=== PATIENT | male | born 1960 | race Hispanic/Latino ===

== ENCOUNTER 2016-11-25 20:28 | Observation (INO) | payer MEDICAID ==
[2016-11-25 20:28] VITALS: BMI 28.7
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
[2016-11-25 23:49] VITALS: RESP 18; TEMP 97.6; O2SAT 95
[2016-11-26 06:27] VITALS: BP 118/65; PULSE 60
== END 2016-11-26 06:40 | disposition home or self-care (01) ==
LOC: ED 20:28 → EROBSV 20:45
PROVIDERS: ADMIT Emergency Medicine; ATTEND Emergency Medicine
DX: F10.10 Alcohol abuse, uncomplicated (principal); Y90.9 Presence of alcohol in blood, level not specified
CPT/HCPCS: 96372; 99283; G0378; J3486

== ENCOUNTER 2016-11-29 15:29 | Observation (INO) | payer MEDICAID ==
[2016-11-29 15:36] VITALS: BMI 32.5
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
[2016-11-29 16:14] LABS: ADD MANUAL DIFF? NO
[2016-11-29 16:15] LABS: BASO # 0.04 K/mm3 (0.0-2.0); BASO % 0.6 % (0.0-3.0); EOS # 0.3 (0.0-0.7); EOS % 3.7 % (1.5-5.0); GRAN # 2.86 (1.4-6.5); GRAN % 39.5 % (50.0-68.0); HEMATOCRIT 42.4 % (42.0-52.0); LYMPH # 3.4 (1.2-3.4); LYMPH % 46.4 % (22.0-35.0); MEAN CELL VOLUME 99.1 fL (80.0-105.0); MEAN CORPUSCULAR HEMOGLOBIN 34.3 pg (25.0-35.0); MEAN CORPUSCULAR HGB CONC 34.7 g/dl (31.0-37.0); MEAN PLATELET VOLUME 9.4 fl (7.0-11.0); MONO # 0.7 (0.1-0.6); MONO % 9.8 % (1.0-6.0); PLATELET COUNT 230 10^3/uL (120.0-450.0); RED CELL DISTRIBUTION WIDTH 13.7 % (11.5-14.5); WHITE BLOOD COUNT 7.2 10^3/ul (4.5-11.0)
[2016-11-29 16:25] LABS: ALB/GLOB RATIO 1.1 (1.1-1.8); ALKALINE PHOSPHATASE 54 U/L (38-133); ALT/SGPT 160 U/L (7-56); AST/SGOT 167 U/L (15-59); BILIRUBIN,TOTAL 0.7 mg/dL (0.2-1.3); BLOOD UREA NITROGEN 22 mg/dL (7-21); CALCIUM 9.5 mg/dL (8.4-10.5); CARBON DIOXIDE 25 mmol/L (21-33); CHLORIDE 103 mmol/L (98-107); GFR AFRICAN-AMERICAN > 60; GLUCOSE,RANDOM 78 mg/dL (70-110); MAGNESIUM 1.9 mg/dL (1.7-2.2); POTASSIUM 4.5 mmol/L (3.6-5.0); SODIUM 142 mmol/L (132-148); TOTAL PROTEIN 8.2 g/dL (5.8-8.3)
[2016-11-29 16:40] VITALS: TEMP 98.2
[2016-11-29 18:09] VITALS: BP 118/70; PULSE 80; RESP 17; O2SAT 94
== END 2016-11-29 17:40 | disposition home or self-care (01) ==
LOC: ED 15:29 → EROBSV 16:08
PROVIDERS: ADMIT Emergency Medicine; ATTEND Emergency Medicine
DX: F10.129 Alcohol abuse with intoxication, unspecified (principal)
CPT/HCPCS: 80053; 80329; 83735; 85025; 99283; G0378

== ENCOUNTER 2016-12-01 14:02 | Emergency (ER) | payer MEDICAID ==
[2016-12-01 14:02] VITALS: BMI 32.5
[2016-12-01 14:13] VITALS: BP 139/78; PULSE 88; RESP 18; TEMP 98; O2SAT 95
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
== END 2016-12-01 14:41 | disposition home or self-care (01) ==
LOC: ED 14:02
DX: T51.0X1A Toxic effect of ethanol, accidental (unintentional), initial encounter (principal)

== ENCOUNTER 2016-12-11 09:16 | Emergency (ER) | payer MEDICAID ==
[2016-12-11 09:23] VITALS: BMI 29.7
[2016-12-11] MEDS ORDERED: Oxycodone/Acetaminophen 5/325 mg Tab PO STA (09:29)
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
[2016-12-11 09:31] VITALS: BP 143/90; PULSE 81; RESP 16; TEMP 97.7; O2SAT 98
== END 2016-12-11 09:59 | disposition home or self-care (01) ==
LOC: ED 09:16
DX: M54.5 Low back pain (principal); G89.29 Other chronic pain; I10 Essential (primary) hypertension; F17.210 Nicotine dependence, cigarettes, uncomplicated

== ENCOUNTER 2016-12-19 20:56 | Observation (INO) | payer MEDICAID ==
[2016-12-19 21:13] VITALS: BMI 29.5
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
[2016-12-19 23:32] LABS: ALB/GLOB RATIO 1.1 (1.1-1.8); ALKALINE PHOSPHATASE 46 U/L (38-133); ALT/SGPT 185 U/L (7-56); AST/SGOT 134 U/L (15-59); BILIRUBIN,TOTAL 0.5 mg/dL (0.2-1.3); BLOOD UREA NITROGEN 18 mg/dL (7-21); CARBON DIOXIDE 26 mmol/L (21-33); CHLORIDE 102 mmol/L (98-107); GFR AFRICAN-AMERICAN > 60; GLUCOSE,RANDOM 89 mg/dL (70-110); POTASSIUM 4.2 mmol/L (3.6-5.0); SODIUM 138 mmol/L (132-148)
[2016-12-19 23:37] LABS: HEMATOCRIT 43.1 % (42.0-52.0); MEAN CELL VOLUME 98.9 fL (80.0-105.0); MEAN CORPUSCULAR HEMOGLOBIN 33.9 pg (25.0-35.0); MEAN CORPUSCULAR HGB CONC 34.3 g/dl (31.0-37.0); MEAN PLATELET VOLUME 9.4 fl (7.0-11.0); RED CELL DISTRIBUTION WIDTH 13.3 % (11.5-14.5); WHITE BLOOD COUNT 6.5 10^3/ul (4.5-11.0)
[2016-12-19 23:44] LABS: TROPONIN I < 0.01 ng/mL
[2016-12-19] MEDS ORDERED: Folic Acid 1 MG, Thiamine 100 MG, Multivitamin (MVI) 10 ML in Dextrose 5% In Water 1,00... IV SCH (23:45)
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
[2016-12-20 00:36] LABS: INR 1.04 (0.93-1.08); PARTIAL THROMBOPLASTIN TIME 28.3 Seconds (23.7-30.8)
[2016-12-20] MEDS ORDERED: Multivitamin (MVI) 10 ML, Thiamine 100 MG, Folic Acid 1 MG in Dextrose 5% In Water 1,00... IV ONE (00:45)
--- NOTE | 2016-12-20 08:46 | RAD ---
HISTORY: chest pain COMPARISON: 11/06/2016 FINDINGS: LUNGS: No active pulmonary disease. PLEURA: No significant pleural effusion identified, no pneumothorax apparent. CARDIOVASCULAR: Normal. OSSEOUS STRUCTURES: No significant abnormalities. VISUALIZED UPPER ABDOMEN: Normal. OTHER FINDINGS: None. IMPRESSION: No active disease.
[2016-12-20] MEDS ORDERED: Sodium Chloride 0.9% 1,000 ML IV SCH (11:00)
[2016-12-20] MEDS ORDERED: Multivitamin (MVI) 10 ML, Thiamine 100 MG, Folic Acid 1 MG in Sodium Chloride 0.9% 1,00... IV ONE (11:18)
--- NOTE | 2016-12-20 12:15 | CARD ---
APPROVED REPORT EKG Measurement Heart [id number] ID [id number] <Conclusion> Normal sinus rhythm Normal ECG
[2016-12-20] MEDS: Oxycodone/Acetaminophen 5/325 mg Tab PO PRN (17:49)
[2016-12-21 00:48] VITALS: RESP 20
[2016-12-21] MEDS: Oxycodone/Acetaminophen 5/325 mg Tab PO PRN ×2 (01:59→09:57)
[2016-12-21 06:31] VITALS: BP 139/85; PULSE 66; TEMP 97.6; O2SAT 95
[2016-12-21 07:17] LABS: HEMATOCRIT 41.8 % (42.0-52.0); MEAN CELL VOLUME 97.9 fL (80.0-105.0); MEAN CORPUSCULAR HGB CONC 34.7 g/dl (31.0-37.0); MEAN PLATELET VOLUME 10.1 fl (7.0-11.0); RED CELL DISTRIBUTION WIDTH 13.3 % (11.5-14.5); WHITE BLOOD COUNT 5.6 10^3/ul (4.5-11.0)
[2016-12-21 07:27] LABS: ALB/GLOB RATIO 1.1 (1.1-1.8); ALKALINE PHOSPHATASE 52 U/L (38-133); ALT/SGPT 169 U/L (7-56); AST/SGOT 115 U/L (15-59); BILIRUBIN,TOTAL 0.6 mg/dL (0.2-1.3); BLOOD UREA NITROGEN 13 mg/dL (7-21); CARBON DIOXIDE 27 mmol/L (21-33); CHLORIDE 102 mmol/L (98-107); GFR AFRICAN-AMERICAN > 60; GLUCOSE,RANDOM 100 mg/dL (70-110); POTASSIUM 3.9 mmol/L (3.6-5.0); SODIUM 137 mmol/L (132-148); TOTAL PROTEIN 7.2 g/dL (5.8-8.3)
[2016-12-21 09:29] LABS: CHOLESTEROL 166 mg/dL (130-200)
--- NOTE | 2016-12-21 13:03 | CP.PCM.DIS ---
<Devendra Porter - Last Filed: 12/21/16 12:59> Provider - Provider Date of Admission: 12/19/16 23:57 Attending physician: Jocelyn Vasquez MD Primary care physician: Cliff Omer MD Time Spent in preparation of Discharge (in minutes): 45 Hospital Course - Lab Results Lab Results: Most Recent Lab Values WBC 5.6 10^3/ul (4.5-11.0) 12/21/16 06:45 RBC 4.27 10^6/uL (3.5-6.1) 12/21/16 06:45 Hgb 14.5 gm/dL (14.0-18.0) 12/21/16 06:45 Hct 41.8 % (42.0-52.0) L 12/21/16 06:45 MCV 97.9 fL (80.0-105.0) 12/21/16 06:45 MCH 34.0 pg (25.0-35.0) 12/21/16 06:45 MCHC 34.7 g/dl (31.0-37.0) 12/21/16 06:45 RDW 13.3 % (11.5-14.5) 12/21/16 06:45 Plt Count 200 10^3/uL (120.0-450.0) 12/21/16 06:45 MPV 10.1 fl (7.0-11.0) 12/21/16 06:45 PT 11.2 Seconds (9.9-11.8) 12/19/16 23:10 INR 1.04 (0.93-1.08) 12/19/16 23:10 APTT 28.3 Seconds (23.7-30.8) 12/19/16 23:10 Sodium 137 mmol/L (132-148) 12/21/16 06:45 Potassium 3.9 mmol/L (3.6-5.0) 12/21/16 06:45 Chloride 102 mmol/L (98-107) 12/21/16 06:45 Carbon Dioxide 27 mmol/L (21-33) 12/21/16 06:45 Anion Gap 12 (10-20) 12/21/16 06:45 BUN 13 mg/dL (7-21) 12/21/16 06:45 Creatinine 0.5 mg/dL (0.5-1.4) 12/21/16 06:45 Est GFR ( Amer) > 60 12/21/16 06:45 Est GFR (Non-Af Amer) > 60 12/21/16 06:45 Random Glucose 100 mg/dL (70-110) 12/21/16 06:45 Calcium 9.0 mg/dL (8.4-10.5) 12/21/16 06:45 Total Bilirubin 0.6 mg/dL (0.2-1.3) 12/21/16 06:45 AST 115 U/L (15-59) H 12/21/16 06:45 ALT 169 U/L (7-56) H 12/21/16 06:45 Alkaline Phosphatase 52 U/L (38-133) 12/21/16 06:45 Lactate Dehydrogenase 651 U/L (333-699) 12/19/16 23:10 Total Creatine Kinase 35 U/L (35-230) 12/19/16 23:10 Troponin I < 0.01 ng/mL 12/20/16 13:50 Total Protein 7.2 g/dL (5.8-8.3) 12/21/16 06:45 Albumin 3.7 g/dL (3.0-4.8) 12/21/16 06:45 Globulin 3.5 gm/dL 12/21/16 06:45 Albumin/Globulin Ratio 1.1 (1.1-1.8) 12/21/16 06:45 Triglycerides 76 mg/dL (35-160) 12/21/16 09:00 Cholesterol 166 mg/dL (130-200) 12/21/16 09:00 LDL Cholesterol Direct 62 mg/dL (0-129) 12/21/16 09:00 HDL Cholesterol 76 mg/dL (29-60) H 12/21/16 09:00 Urine Opiates Screen Positive (NEGATIVE) H 12/20/16 13:45 Urine Methadone Screen Negative (NEGATIVE) 12/20/16 13:45 Ur Barbiturates Screen Negative (NEGATIVE) 12/20/16 13:45 Ur Phencyclidine Scrn Negative (NEGATIVE) 12/20/16 13:45 Ur Amphetamines Screen Negative (NEGATIVE) 12/20/16 13:45 U Benzodiazepines Scrn Positive (NEGATIVE) H 12/20/16 13:45 U Oth Cocaine Metabols Negative (NEGATIVE) 12/20/16 13:45 U Cannabinoids Screen Negative (NEGATIVE) 12/20/16 13:45 Alcohol, Quantitative 101 mg/dL (0-10) H 12/19/16 23:10 - Hospital Course Hospital Course: Patient is a 55yo male with past medical history of hypertension, COPD, chronic ETOH abuse, polysubstance abuse, depression and anxiety that presents to the ED c/o chest pain. Patient was heavily intoxicated in the ED with slurred speech but was able to report that he had been drinking throughout the day (~1/2 pint of vodka) when he began to feel short of breath associated with sub-sternal chest pain that radiated into his left arm. Patient reported that a friend called EMS for him. Prior records reveal that he has had multiple admissions for alcohol intoxication/withdrawal and has been non-compliant with alcohol cessation, AA meetings and outpatient follow up. On arrival to the ED, his vitals were as follows: temperature 97.8F, heart rate 85bpm, BP 107/71, RR 18, O2 sat 94% on 2LNC. His labs were notable for an AST of 134, ALT 185, Alcohol level of 101 and troponin negative x1. An EKG revealed normal sinus rhythm with no acute ST-T wave changes. He was admitted for further evaluation/ treatment of chest pain and alcohol withdrawal. He denied abdominal pain, nausea , vomiting, fever, chills, cough. U tox was positive for EtOH, Opiate, and Benzo. Pt was given banana bag, Ativan, Nicotine patch . The following day pt felt better. Denied CP and numbess on his L arm improved. Pt was instructed to f /u with PMD and educated on EtOH cessation. AA arrangement was offered. Pt refused. Pt is stable and was cleared to go home. Discharge Exam - Head Exam Head Exam: ATRAUMATIC, NORMAL INSPECTION, NORMOCEPHALIC - Eye Exam Eye Exam: EOMI, Normal appearance, PERRL Pupil Exam: NORMAL ACCOMODATION, PERRL - ENT Exam ENT Exam: Normal External Ear Exam - Neck Exam Neck exam: Full Rom, Normal Inspection - Respiratory Exam Respiratory Exam: NORMAL BREATHING PATTERN, UNREMARKABLE - Cardiovascular Exam Cardiovascular Exam: REGULAR RHYTHM - GI/Abdominal Exam GI & Abdominal Exam: Soft, Unremarkable. absent: Tenderness - Exam Exam: NORMAL INSPECTION - Extremities Exam Extremities exam: full ROM - Neurological Exam Neurological exam: Alert, CN II-XII Intact, Normal Gait, Oriented x3, Reflexes Normal - Psychiatric Exam Psychiatric exam: Normal Affect, Normal Mood - Skin Skin Exam: Dry, Intact, Normal Color, Warm Discharge Plan - Discharge Medications Prescriptions: Folic Acid 1 mg PO DAILY #30 tab Folic Acid/Multivit-Min/Lutein [Therapeutic-M Tablet] 1 each PO DAILY #30 tablet Thiamine [Vitamin B-1] 100 mg PO DAILY #30 tab - Follow Up Plan Condition: STABLE Disposition: HOME/ ROUTINE Instructions: Angina (DC), Chest Pain (DC), Cocaine Abuse (DC), Alcohol Intoxication (DC), Abuse of Alcohol (DC) Additional Instructions: Follow up with Dr Cliff Omer within 3-5 days Referrals: Cliff Omer MD [Primary Care Provider] - <Jocelyn Vasquez - Last Filed: 12/21/16 14:58> Provider - Provider Date of Admission: 12/19/16 23:57 Attending physician: Jocelyn Vasquez MD Primary care physician: Cliff Omer MD Hospital Course - Lab Results Lab Results: Most Recent Lab Values WBC 5.6 10^3/ul (4.5-11.0) 12/21/16 06:45 RBC 4.27 10^6/uL (3.5-6.1) 12/21/16 06:45 Hgb 14.5 gm/dL (14.0-18.0) 12/21/16 06:45 Hct 41.8 % (42.0-52.0) L 12/21/16 06:45 MCV 97.9 fL (80.0-105.0) 12/21/16 06:45 MCH 34.0 pg (25.0-35.0) 12/21/16 06:45 MCHC 34.7 g/dl (31.0-37.0) 12/21/16 06:45 RDW 13.3 % (11.5-14.5) 12/21/16 06:45 Plt Count 200 10^3/uL (120.0-450.0) 12/21/16 06:45 MPV 10.1 fl (7.0-11.0) 12/21/16 06:45 PT 11.2 Seconds (9.9-11.8) 12/19/16 23:10 INR 1.04 (0.93-1.08) 12/19/16 23:10 APTT 28.3 Seconds (23.7-30.8) 12/19/16 23:10 Sodium 137 mmol/L (132-148) 12/21/16 06:45 Potassium 3.9 mmol/L (3.6-5.0) 12/21/16 06:45 Chloride 102 mmol/L (98-107) 12/21/16 06:45 Carbon Dioxide 27 mmol/L (21-33) 12/21/16 06:45 Anion Gap 12 (10-20) 12/21/16 06:45 BUN 13 mg/dL (7-21) 12/21/16 06:45 Creatinine 0.5 mg/dL (0.5-1.4) 12/21/16 06:45 Est GFR ( Amer) > 60 12/21/16 06:45 Est GFR (Non-Af Amer) > 60 12/21/16 06:45 Random Glucose 100 mg/dL (70-110) 12/21/16 06:45 Calcium 9.0 mg/dL (8.4-10.5) 12/21/16 06:45 Total Bilirubin 0.6 mg/dL (0.2-1.3) 12/21/16 06:45 AST 115 U/L (15-59) H 12/21/16 06:45 ALT 169 U/L (7-56) H 12/21/16 06:45 Alkaline Phosphatase 52 U/L (38-133) 12/21/16 06:45 Lactate Dehydrogenase 651 U/L (333-699) 12/19/16 23:10 Total Creatine Kinase 35 U/L (35-230) 12/19/16 23:10 Troponin I < 0.01 ng/mL 12/20/16 13:50 Total Protein 7.2 g/dL (5.8-8.3) 12/21/16 06:45 Albumin 3.7 g/dL (3.0-4.8) 12/21/16 06:45 Globulin 3.5 gm/dL 12/21/16 06:45 Albumin/Globulin Ratio 1.1 (1.1-1.8) 12/21/16 06:45 Triglycerides 76 mg/dL (35-160) 12/21/16 09:00 Cholesterol 166 mg/dL (130-200) 12/21/16 09:00 LDL Cholesterol Direct 62 mg/dL (0-129) 12/21/16 09:00 HDL Cholesterol 76 mg/dL (29-60) H 12/21/16 09:00 Urine Opiates Screen Positive (NEGATIVE) H 12/20/16 13:45 Urine Methadone Screen Negative (NEGATIVE) 12/20/16 13:45 Ur Barbiturates Screen Negative (NEGATIVE) 12/20/16 13:45 Ur Phencyclidine Scrn Negative (NEGATIVE) 12/20/16 13:45 Ur Amphetamines Screen Negative (NEGATIVE) 12/20/16 13:45 U Benzodiazepines Scrn Positive (NEGATIVE) H 12/20/16 13:45 U Oth Cocaine Metabols Negative (NEGATIVE) 12/20/16 13:45 U Cannabinoids Screen Negative (NEGATIVE) 12/20/16 13:45 Alcohol, Quantitative 101 mg/dL (0-10) H 12/19/16 23:10 Attending/Attestation - Attestation I have personally seen and examined this patient.: Yes I have fully participated in the care of the patient.: Yes I have reviewed all pertinent clinical information, including history, physical exam and plan: Yes Notes (Text): I have seen and examined this patient at bedside with the resident. Agree with the above note with the following additions/ exceptions: This is 55 year old male with history of hypertension, COPD, chronic ETOH abuse, polysubstance abuse (snorts heroine), depression and anxiety who presented with chest pain which has resolved. He also was going thru alcohol withdrawal. Patient denies any complaints today including chest pain, abdominal pain, headache, nausea, vomiting, anxiety, diaphoresis or tremors. His gait is steady. PT has cleared him for discharge. Patient will be sent home on thiamine, MVI and folic acid. Patient was offered AA meeting schedule and other information however patient refused. Counselling provided regarding smoking, drugs and alcohol cessation. Patient will follow up with Dr Cliff Omer within 3-[address] Jocelyn Vasquez
== END 2016-12-21 12:20 | disposition home or self-care (01) ==
LOC: ED 20:56 → ERH 23:57 → 2RNO 12-20 01:32
PROVIDERS: ADMIT Internal Medicine; ATTEND Hospitalist
DX: F10.239 Alcohol dependence with withdrawal, unspecified (principal); R07.9 Chest pain, unspecified; I10 Essential (primary) hypertension; J44.9 Chronic obstructive pulmonary disease, unspecified; F19.10 Other psychoactive substance abuse, uncomplicated; Z87.19 Personal history of other diseases of the digestive system; F41.9 Anxiety disorder, unspecified; F32.89 Other specified depressive episodes; F17.200 Nicotine dependence, unspecified, uncomplicated; J40 Bronchitis, not specified as acute or chronic; Z87.442 Personal history of urinary calculi; Z91.19 Patient's noncompliance with other medical treatment and regimen; G40.89 Other seizures; R23.2 Flushing; M19.90 Unspecified osteoarthritis, unspecified site; Z87.81 Personal history of (healed) traumatic fracture; Z87.898 Personal history of other specified conditions; Z88.6 Allergy status to analgesic agent; Z88.8 Allergy status to other drugs, medicaments and biological substances; R40.2412 Glasgow coma scale score 13-15, at arrival to emergency department
CPT/HCPCS: 36415; 71010; 80053; 80061; 80074; 80320; 80324; 80345; 80346; 80349; 80353; 80358; 80361; 82550; 83615; 83992; 84484; 85027; 85610; 85730; 93005; 96365; 96366; 96372; 96375; 96376; 97116; 97161; 99282; C9113; G0378; G8978; G8979; G8980; J1644; J2060; J3411; J7040; J7070

== ENCOUNTER 2017-02-07 23:45 | Observation (INO) | payer MEDICAID ==
[2017-02-07 23:45] VITALS: BMI 29.5
[2017-02-07 23:56] VITALS: TEMP 97.7
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
[2017-02-08] MEDS ORDERED: Albuterol-Ipratrop 3 mg / 0.5 (3 ml) UD IH STA (00:49)
[2017-02-08] MEDS ORDERED: Nitroglycerin 2% Ointment Foilpak UD TOP STA (00:49)
[2017-02-08 01:05] LABS: ADD MANUAL DIFF? NO
[2017-02-08 01:09] LABS: BASO # 0.04 K/mm3 (0.0-2.0); BASO % 0.6 % (0.0-3.0); EOS # 0.2 (0.0-0.7); EOS % 2.7 % (1.5-5.0); GRAN # 2.85 (1.4-6.5); GRAN % 41.1 % (50.0-68.0); LYMPH # 3.4 (1.2-3.4); LYMPH % 48.5 % (22.0-35.0); MEAN CORPUSCULAR HEMOGLOBIN 33.7 pg (25.0-35.0); MEAN CORPUSCULAR HGB CONC 35.1 g/dl (31.0-37.0); MONO # 0.5 (0.1-0.6); MONO % 7.1 % (1.0-6.0); PLATELET COUNT 227 10^3/uL (120.0-450.0); RED CELL DISTRIBUTION WIDTH 12.5 % (11.5-14.5); WHITE BLOOD COUNT 6.9 10^3/ul (4.5-11.0)
[2017-02-08 01:23] LABS: ALB/GLOB RATIO 1.2 (1.1-1.8); ALKALINE PHOSPHATASE 56 U/L (38-133); ALT/SGPT 247 U/L (7-56); AST/SGOT 149 U/L (15-59); BILIRUBIN,TOTAL 0.6 mg/dL (0.2-1.3); BLOOD UREA NITROGEN 13 mg/dL (7-21); CALCIUM 8.8 mg/dL (8.4-10.5); CARBON DIOXIDE 25 mmol/L (21-33); CHLORIDE 105 mmol/L (98-107); GFR AFRICAN-AMERICAN > 60; GLUCOSE,RANDOM 86 mg/dL (70-110); MAGNESIUM 1.6 mg/dL (1.7-2.2); POTASSIUM 4.4 mmol/L (3.6-5.0); SODIUM 140 mmol/L (132-148); TOTAL PROTEIN 7.6 g/dL (5.8-8.3)
[2017-02-08 01:35] LABS: TROPONIN I < 0.01 ng/mL
--- NOTE | 2017-02-08 01:47 | CT ---
EXAM: CT Head Without Intravenous Contrast CLINICAL HISTORY: 56 years old, male; Signs and symptoms; Altered mental status/memory loss; Additional info: AMS TECHNIQUE: Axial computed tomography images of the head/brain without intravenous contrast. This CT exam was performed using one or more of the following dose reduction techniques: automated exposure control, adjustment of the mA and/or kV according to patient size, and/or use of iterative reconstruction technique. COMPARISON: CT - HEAD W/O CONTRAST 11/12/2016 11:33:47 AM FINDINGS: Limitations: Motion artifact - mild. Brain: [id number] atrophy. No definite intracranial hemorrhage. No mass. No definite edema. Ventricles: No hydrocephalus. Bones/joints: No acute fracture. Soft tissues: Unremarkable. Sinuses: Scattered minimal mucosal thickening of ethmoid sinuses. Mastoid air cells: No mastoid effusion. Orbits: Unremarkable as visualized. IMPRESSION: 1. No definite acute intracranial abnormality. 2. Incidental/non-acute findings are described above.
[2017-02-08 05:20] VITALS: BP 115/77; PULSE 75; RESP 16; O2SAT 96
[2017-02-08 06:27] LABS: URINE BILIRUBIN NEGATIVE (NEGATIVE); URINE BLOOD NEGATIVE (NEGATIVE); URINE GLUCOSE (UA) NEGATIVE (NEGATIVE); URINE KETONE NEGATIVE (NEGATIVE); URINE LEUKOCYTE ESTERASE NEGATIVE Leu/uL (NEGATIVE); URINE PROTEIN NEGATIVE mg/dL (<30 mg/dL); URINE UROBILINOGEN 0.2 E.U./dL (<1 E.U./dL)
[2017-02-08 06:30] LABS: URINE APPEARANCE CLEAR (CLEAR); URINE COLOR YELLOW (YELLOW)
--- NOTE | 2017-02-08 08:04 | RAD ---
HISTORY: cp COMPARISON: 12/19/2016 FINDINGS: LUNGS: No active pulmonary disease. PLEURA: No significant pleural effusion identified, no pneumothorax apparent. CARDIOVASCULAR: Normal. OSSEOUS STRUCTURES: No significant abnormalities. VISUALIZED UPPER ABDOMEN: Normal. OTHER FINDINGS: None. IMPRESSION: No active disease.
--- NOTE | 2017-02-08 14:28 | CARD ---
APPROVED REPORT EKG Measurement Heart [id number] <Conclusion> Normal sinus rhythm Normal ECG
== END 2017-02-08 06:23 | disposition home or self-care (01) ==
LOC: ED 23:45 → EROBSV 02-08
PROVIDERS: ADMIT Emergency Medicine; ATTEND Emergency Medicine
DX: F10.129 Alcohol abuse with intoxication, unspecified (principal); R07.9 Chest pain, unspecified; Y90.7 Blood alcohol level of 200-239 mg/100 ml
CPT/HCPCS: 70450; 71010; 80053; 80320; 81003; 82550; 83615; 83735; 84484; 85025; 93005; 99284; G0378

== ENCOUNTER 2017-02-08 08:44 | Observation (INO) | payer MEDICAID ==
[2017-02-08 08:44] VITALS: BMI 29.5
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
[2017-02-08] MEDS ORDERED: Oxycodone/Acetaminophen 10/325 mg Tab PO STA (09:46)
--- NOTE | 2017-02-08 09:50 | RAD ---
HISTORY: chest pain COMPARISON: Earlier same day FINDINGS: LUNGS: No active pulmonary disease. PLEURA: No significant pleural effusion identified, no pneumothorax apparent. CARDIOVASCULAR: Normal. OSSEOUS STRUCTURES: No significant abnormalities. VISUALIZED UPPER ABDOMEN: Normal. OTHER FINDINGS: None. IMPRESSION: No active disease.
[2017-02-08 09:51] LABS: ADD MANUAL DIFF? NO
[2017-02-08 09:55] LABS: BASO # 0.03 K/mm3 (0.0-2.0); BASO % 0.4 % (0.0-3.0); EOS # 0.1 (0.0-0.7); EOS % 1.3 % (1.5-5.0); GRAN # 4.45 (1.4-6.5); GRAN % 64.3 % (50.0-68.0); HEMATOCRIT 41.6 % (42.0-52.0); LYMPH # 1.9 (1.2-3.4); LYMPH % 27.5 % (22.0-35.0); MEAN CELL VOLUME 96.5 fL (80.0-105.0); MEAN CORPUSCULAR HEMOGLOBIN 33.6 pg (25.0-35.0); MEAN CORPUSCULAR HGB CONC 34.9 g/dl (31.0-37.0); MEAN PLATELET VOLUME 9.5 fl (7.0-11.0); MONO # 0.5 (0.1-0.6); MONO % 6.5 % (1.0-6.0); PLATELET COUNT 225 10^3/uL (120.0-450.0); RED CELL DISTRIBUTION WIDTH 12.5 % (11.5-14.5); WHITE BLOOD COUNT 6.9 10^3/ul (4.5-11.0)
[2017-02-08 10:10] LABS: ALB/GLOB RATIO 1.2 (1.1-1.8); ALKALINE PHOSPHATASE 62 U/L (38-133); ALT/SGPT 256 U/L (7-56); AST/SGOT 155 U/L (15-59); BILIRUBIN,TOTAL 0.6 mg/dL (0.2-1.3); BLOOD UREA NITROGEN 13 mg/dL (7-21); CALCIUM 9.1 mg/dL (8.4-10.5); CARBON DIOXIDE 27 mmol/L (21-33); CHLORIDE 103 mmol/L (98-107); GFR AFRICAN-AMERICAN > 60; GLUCOSE,RANDOM 77 mg/dL (70-110); LIPASE 71 U/L (23-300); POTASSIUM 4.6 mmol/L (3.6-5.0); SODIUM 140 mmol/L (132-148); TOTAL PROTEIN 7.6 g/dL (5.8-8.3)
[2017-02-08 10:29] LABS: TROPONIN I < 0.01 ng/mL
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
[2017-02-08] MEDS ORDERED: Pneumococcal 23-Valent Vaccine IM ONE (13:19)
[2017-02-08] MEDS: Folic Acid 1 MG, Thiamine 100 MG, Multivitamin (MVI) 10 ML in Dextrose 5% In Water 1,00... IV SCH (14:20)
[2017-02-08] MEDS ORDERED: Magnesium Sulfate 1 gm in D5W 1 GM/100 ML BAG IVPB ONE (14:24)
[2017-02-08 14:33] LABS: TROPONIN I < 0.01 ng/mL
--- NOTE | 2017-02-08 14:34 | CARD ---
APPROVED REPORT EKG Measurement Heart [id number] <Conclusion> Normal sinus rhythm Normal ECG
[2017-02-08] MEDS: Oxycodone/Acetaminophen 10/325 mg Tab PO PRN ×2 (16:01→21:32)
[2017-02-08 22:20] LABS: TROPONIN I < 0.01 ng/mL
[2017-02-09] MEDS: Folic Acid 1 MG, Thiamine 100 MG, Multivitamin (MVI) 10 ML in Dextrose 5% In Water 1,00... IV SCH (00:08)
[2017-02-09] MEDS: Oxycodone/Acetaminophen 10/325 mg Tab PO PRN ×2 (04:11→09:55)
[2017-02-09 06:57] LABS: ADD MANUAL DIFF? NO
[2017-02-09 07:02] LABS: BASO # 0.04 K/mm3 (0.0-2.0); BASO % 0.8 % (0.0-3.0); EOS # 0.2 (0.0-0.7); EOS % 3.7 % (1.5-5.0); GRAN # 2.23 (1.4-6.5); GRAN % 45.7 % (50.0-68.0); HEMATOCRIT 41.2 % (42.0-52.0); LYMPH # 1.9 (1.2-3.4); LYMPH % 38.7 % (22.0-35.0); MEAN CELL VOLUME 94.7 fL (80.0-105.0); MEAN CORPUSCULAR HEMOGLOBIN 33.3 pg (25.0-35.0); MEAN CORPUSCULAR HGB CONC 35.2 g/dl (31.0-37.0); MEAN PLATELET VOLUME 9.5 fl (7.0-11.0); MONO # 0.5 (0.1-0.6); MONO % 11.1 % (1.0-6.0); PLATELET COUNT 192 10^3/uL (120.0-450.0); RED CELL DISTRIBUTION WIDTH 12.2 % (11.5-14.5); WHITE BLOOD COUNT 4.9 10^3/ul (4.5-11.0)
[2017-02-09 07:15] LABS: ALB/GLOB RATIO 1.3 (1.1-1.8); ALKALINE PHOSPHATASE 55 U/L (38-133); ALT/SGPT 220 U/L (7-56); AST/SGOT 113 U/L (15-59); BILIRUBIN,TOTAL 0.9 mg/dL (0.2-1.3); BLOOD UREA NITROGEN 14 mg/dL (7-21); CALCIUM 9.2 mg/dL (8.4-10.5); CARBON DIOXIDE 29 mmol/L (21-33); CHLORIDE 102 mmol/L (95-110); CHOLESTEROL 172 mg/dL (130-200); GFR AFRICAN-AMERICAN > 60; GLUCOSE,RANDOM 101 mg/dL (70-110); MAGNESIUM 1.7 mg/dL (1.7-2.2); PHOSPHOROUS 3.1 mg/dL (2.5-4.5); POTASSIUM 4.1 mmol/L (3.6-5.0); SODIUM 137 mmol/L (132-148)
[2017-02-09 11:34] LABS: TROPONIN I < 0.01 ng/mL
[2017-02-09] MEDS: Multivitamin With Minerals Tab PO SCH (12:34)
--- NOTE | 2017-02-09 13:52 | CON ---
DATE: 02/09/2017 REASON FOR CONSULTATION: Chest pain. The patient is a 56-year-old male who has ETOH abuse as well as heroin abuse. He presents because of chest discomfort that he is unable to describe in character. The patient has been seeking pain medi cation since his presentation. The patient had an echocardiograph study last year, which was unremar kable with normal systolic function and normal segmental wall motion with grade I abnormal relaxation patten. SPECT scan was performed in 2014 that was essentially normal. Study was normal gated wall motion. SOCIAL HISTORY: The patient is a smoker, drinker and heroin abuser. MEDICATIONS: Ativan 1 mg p.o. q. 6 hours p.r.n., Nicoderm patch, Percocet 1 tablet q. 6 hours p.r.n. , thiamine 100 mg once a day. PHYSICAL EXAMINATION: GENERAL: The patient is a middle-aged male who does not appear to be in any distress. VITAL SIGNS: Blood pressure 109/68, heart rate 65, temperature 97.9, respiration 20. HEENT: Normocephalic. NECK: No JVD. CHEST: Clear. HEART: S1, S2 regular. EXTREMITIES: No edema. LABORATORIES: Urine drug screen is positive for opiates. Alcohol level is 80. SMA-7 today is withi n normal limits. A total of 4 troponins are negative. Hemoglobin and hematocrit 14.5 and 41.2. EKG revealed normal sinus rhythm. Chest x-ray report, no active disease. ASSESSMENT: 1. Atypical chest pain, myocardial infarction is ruled out. 2. Ethyl alcohol abuse. 3. Heroin abuse. RECOMMENDATIONS: The patient can be discharged from the cardiac point of view with a followup in the clinic for an outpatient stress test. Chan Alicea MD cc: [id number] TT: 02/09/2017 13:51:45 Confirmation # [id number] Dictation # [id number]
--- NOTE | 2017-02-09 14:23 | CP.PCM.PN ---
<Krissy Porter - Last Filed: 02/09/17 14:26> Subjective - Date & Time of Evaluation Date of Evaluation: 02/09/17 Time of Evaluation: 11:00 - Subjective Subjective: Pt seen and evaluated at bedside. Denies SOB, abdominal pain, urinary changes. Continues to have chest pain, but pain is less. No stool overnight as per pt. Afebrile overnight. Objective - Vital Signs/Intake and Output Vital Signs (last 24 hours): Temp Pulse Resp BP Pulse Ox 98 F 76 20 129/86 93 L 02/09/17 12:00 02/09/17 12:00 02/09/17 12:00 02/09/17 12:00 02/09/17 05:48 Intake and Output: 02/09/17 02/09/17 06:59 18:59 Intake Total 1320 Output Total 0 Balance 1320 - Medications Medications: Current Medications Famotidine (Pepcid) 40 mg PO HS [facility] Last Admin: 02/08/17 21:32 Dose: 40 mg Folic Acid (Folic Acid) 1 mg PO DAILY [facility] Last Admin: 02/09/17 12:34 Dose: 1 mg Lorazepam (Ativan) 1 mg PO Q6 [facility] PRN Reason: Protocol Last Admin: 02/09/17 11:36 Dose: 1 mg Lorazepam (Ativan) 1 mg PO Q6 PRN; Protocol PRN Reason: Symptoms of alcohol withdrawl Multivitamins/Minerals (Therapeutic-M Tab) 1 tab PO DAILY [facility] Last Admin: 02/09/17 12:34 Dose: 1 tab Nicotine (Nicoderm Cq) 1 patch TD DAILY [facility] Last Admin: 02/09/17 09:55 Dose: Not Given Ondansetron HCl (Zofran Inj) 4 mg IVP Q6H PRN PRN Reason: Nausea/Vomiting Oxycodone HCl (Oxycodone Immediate Release Tab) 10 mg PO TID [facility] Thiamine HCl (Vitamin B1 Tab) 100 mg PO DAILY [facility] Last Admin: 02/09/17 12:34 Dose: 100 mg - Labs Labs: 02/09/17 06:45 02/09/17 06:45 - Constitutional Appears: Non-toxic, No Acute Distress - Head Exam Head Exam: ATRAUMATIC, NORMOCEPHALIC - Eye Exam Eye Exam: EOMI, Normal appearance - Respiratory Exam Respiratory Exam: Clear to Ausculation Bilateral, NORMAL BREATHING PATTERN - Cardiovascular Exam Cardiovascular Exam: +S1, +S2. absent: Bradycardia - GI/Abdominal Exam GI & Abdominal Exam: Soft. absent: Tenderness - Exam External exam: absent: Ecchymosis, Erythema - Extremities Exam Extremities Exam: absent: Pedal Edema, Tenderness - Back Exam Back Exam: absent: CVA tenderness (L), CVA tenderness (R) - Neurological Exam Neurological Exam: Alert, Awake Additional comments: oriented to self and place, not time. - Skin Skin Exam: Normal Color, Warm Assessment and Plan - Assessment and Plan (Free Text) Plan: 56 yo M w/ PMHx of polysubstance abuse including ETOH, GI bleed, depression, anxiety, presents with intermittent chest pain with radiation down left arm. ETOH level 80 upon admission, and 400+ the day prior. Chest pain r/o ACS: Initial troponin negative x4 EKG: NSR 82 Cardiology consulted, help appreciated. Lipid panel Possible ETOH withdrawal: CIWA protocol, seizure precautions ativan 1mg po Q6 prn Regular diet anxiety: ativan 1 mg PO q6 Chronic back pain: home medication of oxycodone/acetaminophen PRN with hold parameter for somnolence PPx: famotidine, SCD <Jada WILLINGHAM,Rosalie - Last Filed: 02/09/17 16:42> Objective - Vital Signs/Intake and Output Vital Signs (last 24 hours): Temp Pulse Resp BP Pulse Ox 98 F 74 20 129/86 93 L 02/09/17 12:00 02/09/17 14:00 02/09/17 12:00 02/09/17 12:00 02/09/17 05:48 - Medications Medications: Current Medications Famotidine (Pepcid) 40 mg PO HS [facility] Last Admin: 02/08/17 21:32 Dose: 40 mg Folic Acid (Folic Acid) 1 mg PO DAILY [facility] Last Admin: 02/09/17 12:34 Dose: 1 mg Lorazepam (Ativan) 1 mg PO Q6 [facility] PRN Reason: Protocol Last Admin: 02/09/17 11:36 Dose: 1 mg Lorazepam (Ativan) 1 mg PO Q6 PRN; Protocol PRN Reason: Symptoms of alcohol withdrawl Multivitamins/Minerals (Therapeutic-M Tab) 1 tab PO DAILY [facility] Last Admin: 02/09/17 12:34 Dose: 1 tab Nicotine (Nicoderm Cq) 1 patch TD DAILY [facility] Last Admin: 02/09/17 09:55 Dose: Not Given Ondansetron HCl (Zofran Inj) 4 mg IVP Q6H PRN PRN Reason: Nausea/Vomiting Oxycodone HCl (Oxycodone Immediate Release Tab) 10 mg PO TID [facility] Thiamine HCl (Vitamin B1 Tab) 100 mg PO DAILY [facility] Last Admin: 02/09/17 12:34 Dose: 100 mg Attending/Attestation - Attestation I have personally seen and examined this patient.: Yes I have fully participated in the care of the patient.: Yes I have reviewed all pertinent clinical information, including history, physical exam and plan: Yes Notes (Text): 02/09/17 16:39 Patient was seen and examined with medical assembly .Agreed with resident assessment and plan. 56 yrs old male with PMH of alcohol abuse was admitted with atypical chest pain , EKG is negative for ischemic changes, serial troponins are normal, patient has been evaluated by cardiology, no further inpatient work up is recommended, however patient is having alcohol withdrawal at this time, we will continue monitoring with [facility] protocol. Patient is currently on 1.1 for agitation. Management plan was discussed in detail with patient Education was provided.
[2017-02-09] MEDS ORDERED: Oxycodone/Acetaminophen 5/325 mg Tab PO PRN (15:10)
[2017-02-09] MEDS ORDERED: Oxycodone/Acetaminophen 5/325 mg Tab PO ONE (15:12)
[2017-02-09] MEDS: oxyCODONE 10 mg Immediate Release Tab PO SCH (17:31)
[2017-02-09 23:54] VITALS: O2SAT 95
--- NOTE | 2017-02-10 01:36 | CARD ---
APPROVED REPORT EKG Measurement Heart [id number] [place] [id number] <Conclusion> Normal sinus rhythm Normal ECG
[2017-02-10] MEDS ORDERED: oxyCODONE 10 mg Immediate Release Tab PO STA (04:48)
[2017-02-10 07:37] LABS: ADD MANUAL DIFF? NO
[2017-02-10 07:48] LABS: BASO # 0.02 K/mm3 (0.0-2.0); BASO % 0.4 % (0.0-3.0); EOS # 0.2 (0.0-0.7); EOS % 4.2 % (1.5-5.0); GRAN # 2.01 (1.4-6.5); GRAN % 44.4 % (50.0-68.0); HEMATOCRIT 39.2 % (42.0-52.0); LYMPH # 1.6 (1.2-3.4); MEAN CELL VOLUME 95.8 fL (80.0-105.0); MEAN CORPUSCULAR HEMOGLOBIN 33.3 pg (25.0-35.0); MEAN CORPUSCULAR HGB CONC 34.7 g/dl (31.0-37.0); MEAN PLATELET VOLUME 9.7 fl (7.0-11.0); MONO # 0.7 (0.1-0.6); PLATELET COUNT 191 10^3/uL (120.0-450.0); RED CELL DISTRIBUTION WIDTH 12.4 % (11.5-14.5); WHITE BLOOD COUNT 4.5 10^3/ul (4.5-11.0)
[2017-02-10 08:00] LABS: ALB/GLOB RATIO 1.2 (1.1-1.8); ALKALINE PHOSPHATASE 54 U/L (38-133); ALT/SGPT 194 U/L (7-56); AST/SGOT 101 U/L (15-59); BILIRUBIN,TOTAL 0.5 mg/dL (0.2-1.3); BLOOD UREA NITROGEN 14 mg/dL (7-21); CALCIUM 8.9 mg/dL (8.4-10.5); CARBON DIOXIDE 27 mmol/L (21-33); CHLORIDE 102 mmol/L (98-107); GFR AFRICAN-AMERICAN > 60; GLUCOSE,RANDOM 112 mg/dL (70-110); MAGNESIUM 1.5 mg/dL (1.7-2.2); PHOSPHOROUS 2.9 mg/dL (2.5-4.5); SODIUM 135 mmol/L (132-148); TOTAL PROTEIN 6.6 g/dL (5.8-8.3)
[2017-02-10] MEDS: Multivitamin With Minerals Tab PO SCH (09:25)
[2017-02-10] MEDS: oxyCODONE 10 mg Immediate Release Tab PO SCH ×2 (09:25→13:17)
[2017-02-10 12:43] VITALS: BP 142/89; PULSE 75; RESP 16; TEMP 98
--- NOTE | 2017-02-10 14:25 | CP.PCM.DIS ---
<Krissy Porter - Last Filed: 02/10/17 14:34> Provider - Provider Date of Admission: 02/09/17 14:59 Attending physician: Rosalie Elias MD Primary care physician: NO PRIMARY CARE PROVIDER Consults: Dr. Arnett Time Spent in preparation of Discharge (in minutes): 35 Hospital Course - Lab Results Lab Results: Most Recent Lab Values WBC 4.5 10^3/ul (4.5-11.0) 02/10/17 05:00 RBC 4.09 10^6/uL (3.5-6.1) 02/10/17 05:00 Hgb 13.6 gm/dL (14.0-18.0) L 02/10/17 05:00 Hct 39.2 % (42.0-52.0) L 02/10/17 05:00 MCV 95.8 fL (80.0-105.0) 02/10/17 05:00 MCH 33.3 pg (25.0-35.0) 02/10/17 05:00 MCHC 34.7 g/dl (31.0-37.0) 02/10/17 05:00 RDW 12.4 % (11.5-14.5) 02/10/17 05:00 Plt Count 191 10^3/uL (120.0-450.0) 02/10/17 05:00 MPV 9.7 fl (7.0-11.0) 02/10/17 05:00 Gran % 44.4 % (50.0-68.0) L 02/10/17 05:00 Lymph % (Auto) 36.0 % (22.0-35.0) H 02/10/17 05:00 Mower % (Auto) 15.0 % (1.0-6.0) H 02/10/17 05:00 Eos % (Auto) 4.2 % (1.5-5.0) 02/10/17 05:00 Baso % (Auto) 0.4 % (0.0-3.0) 02/10/17 05:00 Gran # 2.01 (1.4-6.5) 02/10/17 05:00 Lymph # 1.6 (1.2-3.4) 02/10/17 05:00 Mower # 0.7 (0.1-0.6) H 02/10/17 05:00 Eos # 0.2 (0.0-0.7) 02/10/17 05:00 Baso # 0.02 K/mm3 (0.0-2.0) 02/10/17 05:00 Sodium 135 mmol/L (132-148) 02/10/17 05:00 Potassium 4.0 mmol/L (3.6-5.0) 02/10/17 05:00 Chloride 102 mmol/L (98-107) 02/10/17 05:00 Carbon Dioxide 27 mmol/L (21-33) 02/10/17 05:00 Anion Gap 10 (10-20) 02/10/17 05:00 BUN 14 mg/dL (7-21) 02/10/17 05:00 Creatinine 0.5 mg/dL (0.5-1.4) 02/10/17 05:00 Est GFR ( Amer) > 60 02/10/17 05:00 Est GFR (Non-Af Amer) > 60 02/10/17 05:00 Random Glucose 112 mg/dL (70-110) H 02/10/17 05:00 Calcium 8.9 mg/dL (8.4-10.5) 02/10/17 05:00 Phosphorus 2.9 mg/dL (2.5-4.5) 02/10/17 05:00 Magnesium 1.5 mg/dL (1.7-2.2) L 02/10/17 05:00 Total Bilirubin 0.5 mg/dL (0.2-1.3) 02/10/17 05:00 AST 101 U/L (15-59) H 02/10/17 05:00 ALT 194 U/L (7-56) H 02/10/17 05:00 Alkaline Phosphatase 54 U/L (38-133) 02/10/17 05:00 Lactate Dehydrogenase 452 U/L (333-699) 02/09/17 10:30 Total Creatine Kinase 33 U/L (35-230) L 02/09/17 10:30 Troponin I < 0.01 ng/mL 02/09/17 10:30 Total Protein 6.6 g/dL (5.8-8.3) 02/10/17 05:00 Albumin 3.6 g/dL (3.0-4.8) 02/10/17 05:00 Globulin 3.0 gm/dL 02/10/17 05:00 Albumin/Globulin Ratio 1.2 (1.1-1.8) 02/10/17 05:00 Triglycerides 73 mg/dL (35-160) 02/09/17 06:45 Cholesterol 172 mg/dL (130-200) 02/09/17 06:45 LDL Cholesterol Direct 81 mg/dL (0-129) 02/09/17 06:45 HDL Cholesterol 77 mg/dL (29-60) H 02/09/17 06:45 Lipase 71 U/L (23-300) 02/08/17 09:05 Urine Opiates Screen Positive (NEGATIVE) H 02/08/17 12:06 Urine Methadone Screen Negative (NEGATIVE) 02/08/17 12:06 Ur Barbiturates Screen Negative (NEGATIVE) 02/08/17 12:06 Ur Phencyclidine Scrn Negative (NEGATIVE) 02/08/17 12:06 Ur Amphetamines Screen Negative (NEGATIVE) 02/08/17 12:06 U Benzodiazepines Scrn Negative (NEGATIVE) 02/08/17 12:06 U Oth Cocaine Metabols Negative (NEGATIVE) 02/08/17 12:06 U Cannabinoids Screen Negative (NEGATIVE) 02/08/17 12:06 Alcohol, Quantitative 80 mg/dL (0-10) H 02/08/17 09:05 - Hospital Course Hospital Course: 56 yo M w/ PMHx of polysubstance abuse including ETOH, anxiety, presents with intermittent chest pain with radiation down left arm. Said pain started [place] train and radiated down L arm when walking, w/c/o SOB with walking. ETOH level of 80, and initial troponin negative with NSR EKG. Admitted for chest pain r/o acs and etoh intoxication. On floor: CIWA protocol, Ativan PRN for etoh intoxication. Pt was on 1:1 for one day for agitation and pulling out IV lines. Troponins were negative times four, and chest pain resolved. Home medications given for chronic back pain and anxiety. Pt discharged in stable condition with the following instructions: You are discharged. Please follow-up with your primary care physician within the next week. Please resume your home medications and take the following new ones: Thiamine 100mg by mouth once daily, Folic acid 1mg by mouth once daily, multivitamin by mouth once daily. You are advised to stop alcohol ingestion. Please follow-up with Dr. Alicea's clinic for outpatient stress test. Please return to the emergency department for worsening of symptoms. Discharge Exam - Head Exam Head Exam: ATRAUMATIC, NORMOCEPHALIC - Eye Exam Eye Exam: EOMI, Normal appearance Pupil Exam: NORMAL ACCOMODATION, PERRL - ENT Exam ENT Exam: Mucous Membranes Moist, Normal Exam - Respiratory Exam Respiratory Exam: NORMAL BREATHING PATTERN, UNREMARKABLE - Cardiovascular Exam Cardiovascular Exam: +S1, +S2. absent: Bradycardia - GI/Abdominal Exam GI & Abdominal Exam: Soft. absent: Tenderness - Exam External exam: absent: Ecchymosis, Erythema - Back Exam Back exam: absent: CVA tenderness (L), CVA tenderness (R) - Skin Skin Exam: Intact, Normal Color Discharge Plan - Discharge Medications Prescriptions: Folic Acid 1 mg PO DAILY #14 tab Multimineral/Multivitamin [Therapeutic-M Tab] 1 tab PO DAILY #14 tab Thiamine [Vitamin B1 Tab] 100 mg PO DAILY #14 tab - Follow Up Plan Condition: STABLE Disposition: HOME/ ROUTINE Instructions: How to Stop Smoking (DC), Non-pharmacological Pain Management Therapies for Adults (GEN), Alcohol Intoxication (GEN), Opioid Withdrawal (DC) Additional Instructions: You are discharged. Please follow-up with your primary care physician within the next week. Please resume your home medications and take the following new ones: Thiamine 100mg by mouth once daily, Folic acid 1mg by mouth once daily, multivitamin by mouth once daily. You are advised to stop alcohol ingestion. Please follow-up with Dr. Alicea's clinic for outpatient stress test. Please return to the emergency department for worsening of symptoms. Referrals: Cliff Omer MD [Medical Doctor] - Chan Alicea MD [Staff Provider] - NORI RAMOS [Primary Care Provider] - <Rosalie Elias MD - Last Filed: 02/10/17 17:21> Provider - Provider Date of Admission: 02/09/17 14:59 Attending physician: Rosalie Elias MD Primary care physician: NORI PRIMARY CARE PROVIDER Hospital Course - Lab Results Lab Results: Most Recent Lab Values WBC 4.5 10^3/ul (4.5-11.0) 05/31/17 05:00 RBC 4.09 10^6/uL (3.5-6.1) 02/10/17 05:00 Hgb 13.6 gm/dL (14.0-18.0) L 02/10/17 05:00 Hct 39.2 % (42.0-52.0) L 02/10/17 05:00 MCV 95.8 fL (80.0-105.0) 02/10/17 05:00 MCH 33.3 pg (25.0-35.0) 02/10/17 05:00 MCHC 34.7 g/dl (31.0-37.0) 02/10/17 05:00 RDW 12.4 % (11.5-14.5) 02/10/17 05:00 Plt Count 191 10^3/uL (120.0-450.0) 02/10/17 05:00 MPV 9.7 fl (7.0-11.0) 02/10/17 05:00 Gran % 44.4 % (50.0-68.0) L 02/10/17 05:00 Lymph % (Auto) 36.0 % (22.0-35.0) H 02/10/17 05:00 Mower % (Auto) 15.0 % (1.0-6.0) H 02/10/17 05:00 Eos % (Auto) 4.2 % (1.5-5.0) 02/10/17 05:00 Baso % (Auto) 0.4 % (0.0-3.0) 02/10/17 05:00 Gran # 2.01 (1.4-6.5) 02/10/17 05:00 Lymph # 1.6 (1.2-3.4) 02/10/17 05:00 Mower # 0.7 (0.1-0.6) H 02/10/17 05:00 Eos # 0.2 (0.0-0.7) 02/10/17 05:00 Baso # 0.02 K/mm3 (0.0-2.0) 02/10/17 05:00 Sodium 135 mmol/L (132-148) 02/10/17 05:00 Potassium 4.0 mmol/L (3.6-5.0) 02/10/17 05:00 Chloride 102 mmol/L (98-107) 02/10/17 05:00 Carbon Dioxide 27 mmol/L (21-33) 02/10/17 05:00 Anion Gap 10 (10-20) 02/10/17 05:00 BUN 14 mg/dL (7-21) 02/10/17 05:00 Creatinine 0.5 mg/dL (0.5-1.4) 02/10/17 05:00 Est GFR ( Amer) > 60 02/10/17 05:00 Est GFR (Non-Af Amer) > 60 02/10/17 05:00 Random Glucose 112 mg/dL (70-110) H 02/10/17 05:00 Calcium 8.9 mg/dL (8.4-10.5) 02/10/17 05:00 Phosphorus 2.9 mg/dL (2.5-4.5) 02/10/17 05:00 Magnesium 1.5 mg/dL (1.7-2.2) L 02/10/17 05:00 Total Bilirubin 0.5 mg/dL (0.2-1.3) 02/10/17 05:00 AST 101 U/L (15-59) H 02/10/17 05:00 ALT 194 U/L (7-56) H 02/10/17 05:00 Alkaline Phosphatase 54 U/L (38-133) 02/10/17 05:00 Lactate Dehydrogenase 452 U/L (333-699) 02/09/17 10:30 Total Creatine Kinase 33 U/L (35-230) L 02/09/17 10:30 Troponin I < 0.01 ng/mL 02/09/17 10:30 Total Protein 6.6 g/dL (5.8-8.3) 02/10/17 05:00 Albumin 3.6 g/dL (3.0-4.8) 02/10/17 05:00 Globulin 3.0 gm/dL 02/10/17 05:00 Albumin/Globulin Ratio 1.2 (1.1-1.8) 02/10/17 05:00 Triglycerides 73 mg/dL (35-160) 02/09/17 06:45 Cholesterol 172 mg/dL (130-200) 02/09/17 06:45 LDL Cholesterol Direct 81 mg/dL (0-129) 02/09/17 06:45 HDL Cholesterol 77 mg/dL (29-60) H 02/09/17 06:45 Lipase 71 U/L (23-300) 02/08/17 09:05 Urine Opiates Screen Positive (NEGATIVE) H 02/08/17 12:06 Urine Methadone Screen Negative (NEGATIVE) 02/08/17 12:06 Ur Barbiturates Screen Negative (NEGATIVE) 02/08/17 12:06 Ur Phencyclidine Scrn Negative (NEGATIVE) 02/08/17 12:06 Ur Amphetamines Screen Negative (NEGATIVE) 02/08/17 12:06 U Benzodiazepines Scrn Negative (NEGATIVE) 02/08/17 12:06 U Oth Cocaine Metabols Negative (NEGATIVE) 02/08/17 12:06 U Cannabinoids Screen Negative (NEGATIVE) 02/08/17 12:06 Alcohol, Quantitative 80 mg/dL (0-10) H 02/08/17 09:05 Attending/Attestation - Attestation I have personally seen and examined this patient.: Yes I have fully participated in the care of the patient.: Yes I have reviewed all pertinent clinical information, including history, physical exam and plan: Yes Notes (Text): 02/10/17 17:18 Patient was seen and examined with medical claims examiner .Agreed with resident assessment and plan. 56 yrs old male with PMH of alcohol abuse was admitted with atypical chest pain , EKG is negative for ischemic changes, serial troponins are normal, patient has been evaluated by cardiology, no further inpatient work up is recommended, his alcohol withdrawal are improved, he is ambulatory at the time of discharge.His transamianse are improving. The issue of chronic alcohol abuse was discussed in detail with him. Management plan was discussed in detail with patient Education was provided.
== END 2017-02-10 15:41 | disposition home or self-care (01) ==
LOC: ED 08:44 → ERH 10:43 → 2RSO 12:01 → OBSVTOIN 02-09 14:59 → INTOOBSV 02-09 14:59
PROVIDERS: ADMIT Internal Medicine; ATTEND Internal Medicine
DX: R07.89 Other chest pain (principal); F10.239 Alcohol dependence with withdrawal, unspecified; F11.10 Opioid abuse, uncomplicated; F41.9 Anxiety disorder, unspecified; F32.9 Major depressive disorder, single episode, unspecified; F17.200 Nicotine dependence, unspecified, uncomplicated; Y90.4 Blood alcohol level of 80-99 mg/100 ml; M54.9 Dorsalgia, unspecified; G89.29 Other chronic pain
CPT/HCPCS: 36415; 71010; 80053; 80061; 80320; 80324; 80345; 80346; 80349; 80353; 80358; 80361; 82550; 83615; 83690; 83735; 83992; 84100; 84484; 85025; 93005; 99285; G0378; J2060; J3411; J3475; J7070

== ENCOUNTER 2017-03-07 21:35 | Observation (INO) | payer MEDICAID ==
[2017-03-07 21:41] VITALS: BMI 29.0
[2017-03-07 21:46] VITALS: O2SAT 96
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
[2017-03-08 05:38] VITALS: BP 102/62; PULSE 72; RESP 18; TEMP 97.6
== END 2017-03-08 06:14 | disposition home or self-care (01) ==
LOC: ED 21:35 → EROBSV 21:58
PROVIDERS: ADMIT Emergency Medicine; ATTEND Emergency Medicine
DX: F10.129 Alcohol abuse with intoxication, unspecified (principal); I10 Essential (primary) hypertension
CPT/HCPCS: 82948; 99283; G0378

== ENCOUNTER 2017-10-26 01:45 | Emergency (ER) | payer MEDICAID ==
[2017-10-26 01:52] VITALS: BMI 29.0
[2017-10-26 02:00] VITALS: TEMP 97.6
[2017-10-26] MEDS ORDERED: Albuterol-Ipratrop 3 mg / 0.5 (3 ml) UD IH STA ×2 (02:15→02:55)
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
[2017-10-26 03:29] VITALS: BP 103/61; PULSE 88; RESP 20; O2SAT 94
--- NOTE | 2017-10-26 10:26 | CARD ---
APPROVED REPORT EKG Measurement Heart [id number] <Conclusion> Normal sinus rhythm Normal ECG No change
== END 2017-10-26 04:08 | disposition home or self-care (01) ==
LOC: ED 01:45
DX: J45.909 Unspecified asthma, uncomplicated (principal); I10 Essential (primary) hypertension; F17.210 Nicotine dependence, cigarettes, uncomplicated

== ENCOUNTER 2017-12-14 02:35 | Emergency (ER) | payer MEDICAID ==
[2017-12-14 02:39] VITALS: BMI 32.5
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
[2017-12-14 08:28] VITALS: BP 137/84; PULSE 88; RESP 18; O2SAT 99
== END 2017-12-14 06:35 | disposition home or self-care (01) ==
LOC: ED 02:35
DX: F10.129 Alcohol abuse with intoxication, unspecified (principal); I10 Essential (primary) hypertension; F17.210 Nicotine dependence, cigarettes, uncomplicated

== ENCOUNTER 2017-12-14 23:51 | Emergency (ER) | payer MEDICAID ==
[2017-12-14 23:52] VITALS: BMI 32.5
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
[2017-12-15 00:19] VITALS: TEMP 97.9
[2017-12-15 06:49] VITALS: BP 135/80; PULSE 62; RESP 18; O2SAT 98
== END 2017-12-15 06:49 | disposition home or self-care (01) ==
LOC: ED 23:51
DX: F10.129 Alcohol abuse with intoxication, unspecified (principal); F17.210 Nicotine dependence, cigarettes, uncomplicated; I10 Essential (primary) hypertension

== ENCOUNTER 2018-01-05 00:28 | Emergency (ER) | payer MEDICAID ==
[2018-01-05 01:25] VITALS: BMI 29.4
[2018-01-05 01:30] VITALS: BP 126/87; PULSE 73; RESP 20; TEMP 99; O2SAT 95
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
[2018-01-05 03:16] LABS: BASO # 0.03 K/mm3 (0.0-2.0); BASO % 0.3 % (0.0-3.0); EOS # 0.2 (0.0-0.7); EOS % 2.3 % (1.5-5.0); GRAN # 5.03 (1.4-6.5); GRAN % 50.2 % (50.0-68.0); HEMOGLOBIN 14.6 g/dL (14.0-18.0); LYMPH # 3.5 (1.2-3.4); LYMPH % 35.4 % (22.0-35.0); MEAN CORPUSCULAR HEMOGLOBIN 33.6 pg (25.0-35.0); MEAN CORPUSCULAR HGB CONC 34.6 g/dl (31.0-37.0); MEAN PLATELET VOLUME 9.7 fl (7.0-11.0); MONO # 1.2 (0.1-0.6); MONO % 11.8 % (1.0-6.0); RBC 4.35 10^6/uL (3.5-6.1); RED CELL DISTRIBUTION WIDTH 13.1 % (11.5-14.5)
[2018-01-05 03:26] LABS: ALB/GLOB RATIO 1.4 (1.1-1.8); ALBUMIN 4.4 g/dL (3.0-4.8); ALT/SGPT 131 U/L (7-56); AST/SGOT 73 U/L (17-59); BLOOD UREA NITROGEN 18 mg/dL (7-21); CALCIUM 9.4 mg/dL (8.4-10.5); GFR AFRICAN-AMERICAN > 60; GFR NON-AFRICAN AMERICAN > 60
[2018-01-05 03:37] LABS: TROPONIN I < 0.01 ng/mL
[2018-01-05 03:48] LABS: URINE BILIRUBIN MODERATE (NEGATIVE); URINE BLOOD NEGATIVE (NEGATIVE); URINE GLUCOSE (UA) NEGATIVE (NEGATIVE); URINE LEUKOCYTE ESTERASE TRACE Leu/uL (NEGATIVE); URINE PROTEIN 30 mg/dL (<30 mg/dL)
[2018-01-05 03:54] LABS: URINE APPEARANCE CLOUDY (CLEAR); URINE COLOR DARK YELLOW (YELLOW)
[2018-01-05 04:55] LABS: URINE RBC NEGATIVE /hpf (0-2); URINE WBC NEGATIVE /hpf (0-6)
[2018-01-05 04:56] LABS: URINE BACTERIA FEW (NEG)
--- NOTE | 2018-01-05 09:19 | RAD ---
HISTORY: cp COMPARISON: 02/08/2017 FINDINGS: LUNGS: No active pulmonary disease. PLEURA: No significant pleural effusion identified, no pneumothorax apparent. CARDIOVASCULAR: Normal. OSSEOUS STRUCTURES: No significant abnormalities. VISUALIZED UPPER ABDOMEN: Normal. OTHER FINDINGS: None. IMPRESSION: No active disease.
--- NOTE | 2018-01-05 11:05 | CARD ---
APPROVED REPORT EKG Measurement Heart [id number] <Conclusion> Normal sinus rhythm Normal ECG
== END 2018-01-05 05:40 | disposition home or self-care (01) ==
LOC: ED 00:28
DX: R07.89 Other chest pain (principal); I10 Essential (primary) hypertension; F17.210 Nicotine dependence, cigarettes, uncomplicated; F19.10 Other psychoactive substance abuse, uncomplicated

== ENCOUNTER 2018-01-07 10:34 | Emergency (ER) | payer MEDICAID ==
[2018-01-07 10:34] VITALS: BMI 29.4
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
[2018-01-07 12:00] LABS: BASO # 0.02 K/mm3 (0.0-2.0); BASO % 0.3 % (0.0-3.0); EOS # 0.3 (0.0-0.7); GRAN # 4.59 (1.4-6.5); HEMOGLOBIN 13.7 g/dL (14.0-18.0); LYMPH # 1.9 (1.2-3.4); LYMPH % 24.7 % (22.0-35.0); MEAN CELL VOLUME 98.3 fl (80.0-105.0); MEAN CORPUSCULAR HEMOGLOBIN 33.4 pg (25.0-35.0); MEAN PLATELET VOLUME 9.2 fl (7.0-11.0); MONO # 0.9 (0.1-0.6); RBC 4.1 10^6/uL (3.5-6.1); WHITE BLOOD COUNT 7.8 10^3/ul (4.5-11.0)
[2018-01-07 12:10] LABS: INR 1.06 (0.93-1.08); PROTHROMBIN TIME 12.2 SECONDS (9.4-12.5)
[2018-01-07 12:14] LABS: ALB/GLOB RATIO 1.5 (1.1-1.8); ALBUMIN 4.2 g/dL (3.0-4.8); ALT/SGPT 129 U/L (7-56); AST/SGOT 86 U/L (17-59); BLOOD UREA NITROGEN 19 mg/dL (7-21); CALCIUM 8.8 mg/dL (8.4-10.5); GFR AFRICAN-AMERICAN > 60; GFR NON-AFRICAN AMERICAN > 60
[2018-01-07 12:15] LABS: ACETAMINOPHEN < 10.0 ug/ml (10.0-20.0); SALICYLATE < 1 mg/dL (2.0-20.0)
[2018-01-07 12:25] LABS: TROPONIN I < 0.01 ng/mL
[2018-01-07] MEDS ORDERED: Potassium Chloride 20 mEq ER Tab PO STA (12:30)
--- NOTE | 2018-01-07 12:30 | RAD ---
HISTORY: 57yoM, overdose COMPARISON: 01/05/2018 FINDINGS: LUNGS: No active pulmonary disease. PLEURA: No significant pleural effusion identified, no pneumothorax apparent. CARDIOVASCULAR: Normal. OSSEOUS STRUCTURES: No significant abnormalities. VISUALIZED UPPER ABDOMEN: Normal. OTHER FINDINGS: None. IMPRESSION: No active disease.
[2018-01-07 13:58] VITALS: BP 120/61; PULSE 74; RESP 16; O2SAT 98
[2018-01-07 14:35] VITALS: TEMP 97.6
--- NOTE | 2018-01-07 18:39 | CARD ---
APPROVED REPORT EKG Measurement Heart [id number] <Conclusion> Normal sinus rhythm Normal ECG
== END 2018-01-07 14:31 | disposition left against medical advice (07) ==
LOC: ED 10:34
DX: F11.10 Opioid abuse, uncomplicated (principal); F17.210 Nicotine dependence, cigarettes, uncomplicated; I10 Essential (primary) hypertension

== ENCOUNTER 2018-01-18 14:01 | Emergency (ER) | payer MEDICAID ==
[2018-01-18 14:10] VITALS: TEMP 97; BMI 29.8
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
[2018-01-18 19:46] VITALS: BP 120/68
[2018-01-18 22:29] VITALS: PULSE 72; RESP 16; O2SAT 99
== END 2018-01-18 22:00 | disposition home or self-care (01) ==
LOC: ED 14:01
DX: F10.129 Alcohol abuse with intoxication, unspecified (principal)
CPT/HCPCS: 82948; 96372; 99285; J1630; J2060

== ENCOUNTER 2018-01-29 02:54 | Emergency (ER) | payer MEDICAID ==
[2018-01-29 02:54] VITALS: BMI 29.8
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
[2018-01-29 06:11] VITALS: BP 138/79; PULSE 72; RESP 18; O2SAT 98
[2018-01-29 06:12] VITALS: TEMP 98.1
--- NOTE | 2018-01-29 10:28 | RAD ---
PROCEDURE: Radiographs of the Left Shoulder HISTORY: r/o fx COMPARISON: No prior. FINDINGS: BONES: Normal. No fracture. JOINTS: Normal. Glenohumeral and acromioclavicular joints preserved. No osteoarthritis. SOFT TISSUES: Normal. OTHER FINDINGS: None. IMPRESSION: No acute findings related to/accounting for the clinical presentation.
== END 2018-01-29 05:36 | disposition home or self-care (01) ==
LOC: ED 02:54
DX: M25.512 Pain in left shoulder (principal)

== ENCOUNTER 2018-02-01 04:17 | Emergency (ER) | payer MEDICAID ==
[2018-02-01 04:18] VITALS: BMI 29.8
[2018-02-01] MEDS ORDERED: Multivitamin (MVI) 10 ML, Thiamine 100 MG, Folic Acid 1 MG in Dextrose 5% In Water 1,00... IV ONE (04:43)
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
[2018-02-01 05:48] LABS: BASO # 0.02 K/mm3 (0.0-2.0); BASO % 0.4 % (0.0-3.0); EOS # 0.2 (0.0-0.7); EOS % 3.3 % (1.5-5.0); GRAN # 3.12 (1.4-6.5); GRAN % 57.8 % (50.0-68.0); HEMOGLOBIN 14.3 g/dL (14.0-18.0); LYMPH # 1.4 (1.2-3.4); LYMPH % 26.3 % (22.0-35.0); MEAN CELL VOLUME 97.4 fl (80.0-105.0); MEAN CORPUSCULAR HEMOGLOBIN 33.6 pg (25.0-35.0); MEAN CORPUSCULAR HGB CONC 34.5 g/dl (31.0-37.0); MEAN PLATELET VOLUME 9.2 fl (7.0-11.0); MONO # 0.7 (0.1-0.6); MONO % 12.2 % (1.0-6.0); RBC 4.26 10^6/uL (3.5-6.1); RED CELL DISTRIBUTION WIDTH 13.3 % (11.5-14.5); WHITE BLOOD COUNT 5.4 10^3/ul (4.5-11.0)
[2018-02-01 05:54] LABS: ALB/GLOB RATIO 1.3 (1.1-1.8); ALBUMIN 4.3 g/dL (3.0-4.8); ALT/SGPT 163 U/L (7-56); AST/SGOT 172 U/L (17-59); BLOOD UREA NITROGEN 12 mg/dL (7-21); CALCIUM 8.9 mg/dL (8.4-10.5); GFR AFRICAN-AMERICAN > 60; GFR NON-AFRICAN AMERICAN > 60
[2018-02-01] MEDS ORDERED: Magnesium Sulfate 2 GM in Sodium Chloride 0.9% 100 ML IVPB ONE (05:56)
--- NOTE | 2018-02-01 08:01 | RAD ---
HISTORY: short of breath COMPARISON: 01/07/2018 FINDINGS: LUNGS: No interval consolidation. Generalized minimal pulmonary venous congestion suspect -similar to slightly increased. PLEURA: No significant pleural effusion identified, no pneumothorax apparent. CARDIOVASCULAR: Normal OSSEOUS STRUCTURES: Thoracic spondylosis bilateral shoulder arthrosis prominent 1st coaster cartilaginous junctional calcifications -similar appearing VISUALIZED UPPER ABDOMEN: Normal. OTHER FINDINGS: None. IMPRESSION: No interval consolidation or atelectasis, pleural effusion or pneumothorax. Pulmonary vasculature appears minimally congested - probably chronic. Possibly slightly increased. No rachel effusion.
[2018-02-01 08:07] VITALS: O2SAT 94
[2018-02-01 08:57] VITALS: BP 148/85; PULSE 64; RESP 16; TEMP 98.7
== END 2018-02-01 08:56 | disposition home or self-care (01) ==
LOC: ED 04:17
DX: T78.40XA Allergy, unspecified, initial encounter (principal); T50.995A Adverse effect of other drugs, medicaments and biological substances, initial encounter; Y92.89 Other specified places as the place of occurrence of the external cause
CPT/HCPCS: 71045; 80053; 80320; 83735; 84100; 85025; 96374; 99284; J2405; J3411; J3475; J7070

== ENCOUNTER 2018-02-07 23:42 | Emergency (ER) | payer MEDICAID ==
[2018-02-08 00:12] VITALS: BP 122/74; PULSE 93; RESP 18; TEMP 98.1; BMI 16.2
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
[2018-02-08] MEDS ORDERED: Oxycodone/Acetaminophen 5/325 mg Tab PO STA (01:06)
[2018-02-08 03:14] VITALS: O2SAT 99
== END 2018-02-08 03:13 | disposition home or self-care (01) ==
LOC: ED 23:42
DX: M54.5 Low back pain (principal); F17.210 Nicotine dependence, cigarettes, uncomplicated; I10 Essential (primary) hypertension; J44.9 Chronic obstructive pulmonary disease, unspecified
CPT/HCPCS: 96372; 99282; J1885

== ENCOUNTER 2018-02-14 21:29 | Emergency (ER) | payer MEDICAID ==
[2018-02-14 21:46] VITALS: BMI 29.0
[2018-02-14] MEDS ORDERED: Albuterol-Ipratrop 3 mg / 0.5 (3 ml) UD IH STA (22:07)
[2018-02-14 22:39] VITALS: TEMP 97.8; O2SAT 95
[2018-02-14 23:28] VITALS: BP 132/75; PULSE 75
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
[2018-02-14 23:55] VITALS: RESP 18
== END 2018-02-14 23:41 | disposition home or self-care (01) ==
LOC: ED 21:29
DX: J44.9 Chronic obstructive pulmonary disease, unspecified (principal); F17.210 Nicotine dependence, cigarettes, uncomplicated

== ENCOUNTER 2018-02-17 23:30 | Emergency (ER) | payer MEDICAID ==
[2018-02-17 23:31] VITALS: BMI 29.0
[2018-02-17 23:46] VITALS: TEMP 98.1
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
[2018-02-18 06:48] VITALS: BP 105/62; PULSE 61; RESP 17; O2SAT 95
--- NOTE | 2018-02-18 10:38 | RAD ---
PROCEDURE: Radiographs of the Left Shoulder HISTORY: pain/past injury COMPARISON: No prior. FINDINGS: BONES: Normal. No fracture. JOINTS: Mild degenerative changes in the acromioclavicular joint. The glenohumeral joint is unremarkable SOFT TISSUES: Normal. OTHER FINDINGS: None. IMPRESSION: Mild degenerative changes in the acromioclavicular joint
== END 2018-02-18 06:47 | disposition home or self-care (01) ==
LOC: ED 23:30
DX: M75.52 Bursitis of left shoulder (principal); I10 Essential (primary) hypertension; F17.210 Nicotine dependence, cigarettes, uncomplicated
CPT/HCPCS: 73030; 96372; 99284; J1885

== ENCOUNTER 2018-02-22 16:54 | Emergency (ER) | payer MEDICAID ==
[2018-02-22 16:54] VITALS: BMI 29.0
[2018-02-22 17:02] VITALS: O2SAT 95
[2018-02-22] MEDS ORDERED: Lidocaine 5% Patch TD ONE (17:11)
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
--- NOTE | 2018-02-22 18:32 | RAD ---
HISTORY: left shoulder/chest pain, fell COMPARISON: Portable chest 02/01/2018 TECHNIQUE: Chest PA and lateral FINDINGS: LUNGS: No active pulmonary disease. PLEURA: No significant pleural effusion identified. No pneumothorax apparent. CARDIOVASCULAR: Normal. OSSEOUS STRUCTURES: No significant abnormalities. VISUALIZED UPPER ABDOMEN: Normal. OTHER FINDINGS: None. IMPRESSION: No interval acute cardiopulmonary disease appreciated.
--- NOTE | 2018-02-22 18:33 | RAD ---
PROCEDURE: Radiographs of the Left Shoulder HISTORY: fell, left shoulder pain COMPARISON: No prior. FINDINGS: BONES: No acute fracture or destructive bony lesion identified. JOINTS: Advanced degenerative changes seen at the acromioclavicular joint including superior osteophytes. Glenohumeral joint appears unremarkable. SOFT TISSUES: Normal. OTHER FINDINGS: None. IMPRESSION: No acute fracture or dislocation. Degenerative acromioclavicular joint changes appear advanced.
[2018-02-22 19:28] VITALS: BP 119/71; PULSE 55; RESP 20; TEMP 98
--- NOTE | 2018-02-22 20:29 | CARD ---
APPROVED REPORT EKG Measurement Heart [id number] <Conclusion> Normal sinus rhythm Normal ECG
== END 2018-02-22 19:10 | disposition home or self-care (01) ==
LOC: ED 16:54
DX: F10.129 Alcohol abuse with intoxication, unspecified (principal); M25.512 Pain in left shoulder; F17.210 Nicotine dependence, cigarettes, uncomplicated; I10 Essential (primary) hypertension
CPT/HCPCS: 71046; 73030; 93005; 96372; 99283; J1885

== ENCOUNTER 2018-02-25 00:10 | Emergency (ER) | payer MEDICAID ==
[2018-02-25 00:11] VITALS: BMI 29.0
[2018-02-25 00:54] VITALS: RESP 18; TEMP 98.6
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
[2018-02-25 06:55] VITALS: BP 118/79; PULSE 62; O2SAT 100
--- NOTE | 2018-02-25 21:36 | CARD ---
APPROVED REPORT EKG Measurement Heart [id number] ID [id number] <Conclusion> Sinus bradycardia Otherwise normal ECG
== END 2018-02-25 06:53 | disposition home or self-care (01) ==
LOC: ED 00:10
DX: F10.10 Alcohol abuse, uncomplicated (principal); I10 Essential (primary) hypertension; F17.210 Nicotine dependence, cigarettes, uncomplicated

== ENCOUNTER 2018-03-01 23:29 | Inpatient (IN) | payer MEDICAID ==
[2018-03-01 23:34] VITALS: BMI 29.4
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
[2018-03-02 06:48] LABS: BASO # 0.02 K/mm3 (0.0-2.0); BASO % 0.3 % (0.0-3.0); EOS # 0.2 (0.0-0.7); GRAN # 3.42 (1.4-6.5); GRAN % 53.1 % (50.0-68.0); HEMOGLOBIN 14.2 g/dL (14.0-18.0); LYMPH % 31.3 % (22.0-35.0); MEAN CELL VOLUME 97.6 fl (80.0-105.0); MEAN CORPUSCULAR HEMOGLOBIN 33.5 pg (25.0-35.0); MEAN CORPUSCULAR HGB CONC 34.3 g/dl (31.0-37.0); MEAN PLATELET VOLUME 9.2 fl (7.0-11.0); MONO # 0.8 (0.1-0.6); MONO % 12.3 % (1.0-6.0); RBC 4.24 10^6/uL (3.5-6.1); RED CELL DISTRIBUTION WIDTH 13.4 % (11.5-14.5); WHITE BLOOD COUNT 6.4 10^3/ul (4.5-11.0)
[2018-03-02 06:49] LABS: URINE BILIRUBIN NEGATIVE (NEGATIVE); URINE BLOOD NEGATIVE (NEGATIVE); URINE GLUCOSE (UA) NEGATIVE (NEGATIVE); URINE LEUKOCYTE ESTERASE TRACE Leu/uL (NEGATIVE); URINE PROTEIN 30 mg/dL (<30 mg/dL); URINE UROBILINOGEN 0.2 E.U./dL (<1 E.U./dL)
[2018-03-02 06:52] LABS: URINE APPEARANCE SL CLOUDY (CLEAR); URINE COLOR DARK YELLOW (YELLOW)
[2018-03-02 06:56] LABS: ACETAMINOPHEN < 10.0 ug/ml (10.0-20.0); SALICYLATE < 1 mg/dL (2.0-20.0)
[2018-03-02 06:59] LABS: URINE BACTERIA FEW (NEG); URINE EPITHELIAL CELLS 0 - 2 /hpf (0-5); URINE RBC 0 - 2 /hpf (0-2); URINE WBC 15 - 20 /hpf (0-6)
[2018-03-02 07:01] LABS: ALB/GLOB RATIO 1.3 (1.1-1.8); ALBUMIN 4.3 g/dL (3.0-4.8); ALT/SGPT 161 U/L (7-56); AST/SGOT 151 U/L (17-59); BLOOD UREA NITROGEN 15 mg/dL (7-21); CALCIUM 8.9 mg/dL (8.4-10.5); GFR AFRICAN-AMERICAN > 60; GFR NON-AFRICAN AMERICAN > 60
[2018-03-02 07:15] LABS: BARBITURATES, UR NEGATIVE (NEGATIVE); BENZODIAZEPINES, UR POSITIVE (NEGATIVE); OPIATES, UR POSITIVE (NEGATIVE); PHENCYCLIDINE, UR NEGATIVE (NEGATIVE)
[2018-03-02] MEDS ORDERED: Magnesium Sulfate 2 gm/50 ml 2 GM/50 ML BAG IVPB ONE (07:32)
[2018-03-02] MEDS ORDERED: Multivitamin (MVI) 10 ML, Thiamine 100 MG, Folic Acid 1 MG in Sodium Chloride 0.9% 1,00... IV ONE (07:39)
[2018-03-02] MEDS ORDERED: Albuterol-Ipratrop 3 mg / 0.5 (3 ml) UD IH PRN (07:41)
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
[2018-03-02] MEDS: Sodium Chloride 0.9% 1,000 ML IV SCH (08:00)
--- NOTE | 2018-03-02 09:26 | CARD ---
APPROVED REPORT EKG Measurement Heart [id number] <Conclusion> Sinus bradycardia Otherwise normal ECG
--- NOTE | 2018-03-02 09:52 | RAD ---
HISTORY: pes COMPARISON: 02/22/2018 FINDINGS: LUNGS: No active pulmonary disease. PLEURA: No significant pleural effusion identified, no pneumothorax apparent. CARDIOVASCULAR: Normal. OSSEOUS STRUCTURES: No significant abnormalities. VISUALIZED UPPER ABDOMEN: Normal. OTHER FINDINGS: None. IMPRESSION: No active disease.
[2018-03-02] MEDS: Enoxaparin 40 mg Syringe SC SCH (10:06)
[2018-03-02] MEDS: cefTRIAXone 1 gm 1 GM/100 ML BAG IVPB SCH (10:07)
[2018-03-02] MEDS ORDERED: Pneumococcal 23-Valent Vaccine IM ONE (14:42)
[2018-03-03] MEDS: Sodium Chloride 0.9% 1,000 ML IV SCH ×2 (04:42→08:48)
[2018-03-03] MEDS ORDERED: Pantoprazole 40 mg EC Tab PO SCH (06:00)
[2018-03-03 06:03] VITALS: O2SAT 99
[2018-03-03 06:34] LABS: BASO # 0.01 K/mm3 (0.0-2.0); BASO % 0.2 % (0.0-3.0); EOS # 0.1 (0.0-0.7); EOS % 2.9 % (1.5-5.0); GRAN # 2.63 (1.4-6.5); HEMOGLOBIN 13.9 g/dL (14.0-18.0); LYMPH # 1.2 (1.2-3.4); LYMPH % 26.5 % (22.0-35.0); MEAN CORPUSCULAR HEMOGLOBIN 32.9 pg (25.0-35.0); MEAN CORPUSCULAR HGB CONC 34.3 g/dl (31.0-37.0); MEAN PLATELET VOLUME 9.9 fl (7.0-11.0); MONO # 0.5 (0.1-0.6); MONO % 11.4 % (1.0-6.0); RBC 4.22 10^6/uL (3.5-6.1); RED CELL DISTRIBUTION WIDTH 12.9 % (11.5-14.5); WHITE BLOOD COUNT 4.5 10^3/ul (4.5-11.0)
[2018-03-03 06:56] LABS: INR 1.06 (0.93-1.08); PARTIAL THROMBOPLASTIN TIME 33.7 Seconds (25.1-36.5); PROTHROMBIN TIME 12.2 SECONDS (9.4-12.5)
[2018-03-03 07:09] LABS: ALBUMIN 3.4 g/dL (3.0-4.8); ALT/SGPT 131 U/L (7-56); AST/SGOT 115 U/L (17-59); BLOOD UREA NITROGEN 14 mg/dL (7-21); CALCIUM 8.6 mg/dL (8.4-10.5); GFR AFRICAN-AMERICAN > 60; GFR NON-AFRICAN AMERICAN > 60
[2018-03-03] MEDS: Enoxaparin 40 mg Syringe SC SCH (10:01)
[2018-03-03] MEDS: cefTRIAXone 1 gm 1 GM/100 ML BAG IVPB SCH (10:02)
[2018-03-03 11:44] VITALS: BP 125/72; RESP 18; TEMP 98.2
--- NOTE | 2018-03-03 15:39 | CP.PCM.PN ---
Subjective - Date & Time of Evaluation Date of Evaluation: 03/03/18 Time of Evaluation: 08:00 - Subjective Subjective: Patient seen and evaluated this AM. Overnight patient required ativan, reported to be agitated and tremulousness. Complains of nausea and vomiting. Noted to have one episode of vomiting. Patient denies chest pain, shortness of breath, abdominal pain. Patient continues to report thoughts of harming oneself. Denies plan, homicidal ideation. Objective - Vital Signs/Intake and Output Vital Signs (last 24 hours): Temp Pulse Resp BP Pulse Ox 98.2 F 59 L 18 125/72 99 03/03/18 11:43 03/03/18 11:43 03/03/18 11:43 03/03/18 11:43 03/03/18 06:00 Intake and Output: 03/03/18 03/03/18 06:59 18:59 Intake Total 1440 560 Output Total 1100 3 Balance 340 557 - Medications Medications: Current Medications Albuterol/Ipratropium (Duoneb 3 Mg/0.5 Mg (3 Ml) Ud) 3 ml IH [id number] PRN PRN Reason: Shortness of Breath Enoxaparin Sodium (Lovenox) 40 mg SC DAILY LINDA PRN Reason: Protocol Last Admin: 03/03/18 10:01 Dose: 40 mg Folic Acid (Folic Acid) 1 mg PO DAILY [facility] Sodium Chloride (Sodium Chloride 0.9%) 1,000 mls @ 80 mls/hr IV .[id number] [facility] Last Admin: 03/03/18 08:48 Dose: 80 mls/hr Ceftriaxone Sodium (Rocephin 1 Gram Ivpb) 1 gm in 100 mls @ 100 mls/hr IVPB DAILY LINDA PRN Reason: Protocol Last Admin: 03/03/18 10:02 Dose: 100 mls/hr Lorazepam (Ativan) 2 mg IVP Q2H PRN; Protocol PRN Reason: Anxiety Last Admin: 03/03/18 13:46 Dose: 2 mg Lorazepam (Ativan) 4 mg IVP Q6 PRN; Protocol PRN Reason: Symptoms of alcohol withdrawl Last Admin: 03/03/18 14:38 Dose: 4 mg Multivitamins/Minerals (Therapeutic-M Tab) 1 tab PO 0800 [facility] Ondansetron HCl (Zofran Inj) 4 mg IVP Q6H PRN PRN Reason: Nausea/Vomiting Last Admin: 03/03/18 08:45 Dose: 4 mg Pantoprazole Sodium (Protonix Ec Tab) 40 mg PO 0600 LINDA Last Admin: 03/03/18 05:54 Dose: 40 mg Thiamine HCl (Vitamin B1 Tab) 100 mg PO DAILY [facility] - Labs Labs: 03/03/18 05:30 03/03/18 05:30 PT 12.2 SECONDS (9.4-12.5) 03/03/18 05:00 INR 1.06 (0.93-1.08) 03/03/18 05:00 APTT 33.7 Seconds (25.1-36.5) 03/03/18 05:00 - Constitutional Appears: No Acute Distress - Head Exam Head Exam: ATRAUMATIC, NORMAL INSPECTION, NORMOCEPHALIC - Eye Exam Eye Exam: EOMI, PERRL - Neck Exam Neck Exam: Full ROM - Respiratory Exam Respiratory Exam: Clear to Ausculation Bilateral, NORMAL BREATHING PATTERN. absent: Wheezes - Cardiovascular Exam Cardiovascular Exam: REGULAR RHYTHM, +S1, +S2 - GI/Abdominal Exam GI & Abdominal Exam: Soft, Normal Bowel Sounds. absent: Firm, Tenderness - Extremities Exam Extremities Exam: absent: Pedal Edema, Tenderness - Neurological Exam Neurological Exam: Alert, Awake, Oriented x3 Additional comments: motor and sensory intact - Psychiatric Exam Psychiatric exam: Agitated, Anxious - Skin Skin Exam: Dry, Warm Assessment and Plan - Assessment and Plan (Free Text) Assessment: Patient is a 57 year old male with a past medical history of tobacco abuse, chronic back pain, polysubstance abuse, chronic alcohol abuse, hypertension, and COPD presenting with alcohol intoxication and suicidal ideation. Plan: Alcohol withdrawal -CIWA protocol, last CIWA 4 -Ativan Q6H 4mg prn -Ativan Q2H 2mg prn -Holding libirum due to transaminitis -Lipase 101 -Banana bag -Aspiration/Seizure/Fall precautions -HOB 45 degrees Suicidal Ideation -Psych consulted, awaiting recs -Continue 1:1 sitter Hypomagnesemia -Replete -Continue to monitor electrolytes Urinary Tract infection -Urine C&S -Rocephin COPD -Duonebs PRN Alcohol, Drug, and Tobacco cessation -Discussed with patient Neuroendocrine tumor -Carcinoid tumor found during colonoscopy done in 10/2017 -Patient to f/u outpatient with GI who performed colonoscopy as well as PMD GI/DVT ppx: Protonix/Lovenox
[2018-03-03 15:49] VITALS: PULSE 58
--- NOTE | 2018-03-03 20:20 | CP.PCM.DIS ---
Provider - Provider Date of Admission: 03/02/18 07:30 Attending physician: Joao Ugalde MD Primary care physician: None Consults: Psych: Dr. Ortiz Time Spent in preparation of Discharge (in minutes): 35 Diagnosis - Discharge Diagnosis (1) Alcohol dependence Status: Chronic (2) Alcohol withdrawal Status: Acute (3) Anxiety Status: Acute (4) Back pain Status: Chronic (5) Polysubstance abuse Status: Chronic (6) Substance abuse Status: Chronic (7) Neuroendocrine tumor Status: Chronic Hospital Course - Lab Results Lab Results: Most Recent Lab Values WBC 4.5 10^3/ul (4.5-11.0) D 03/03/18 05:30 RBC 4.22 10^6/uL (3.5-6.1) 03/03/18 05:30 Hgb 13.9 g/dL (14.0-18.0) L 03/03/18 05:30 Hct 40.5 % (42.0-52.0) L 03/03/18 05:30 MCV 96.0 fl (80.0-105.0) 03/03/18 05:30 MCH 32.9 pg (25.0-35.0) 03/03/18 05:30 MCHC 34.3 g/dl (31.0-37.0) 03/03/18 05:30 RDW 12.9 % (11.5-14.5) 03/03/18 05:30 Plt Count 139 10^3/uL (120.0-450.0) 03/03/18 05:30 MPV 9.9 fl (7.0-11.0) 03/03/18 05:30 Gran % 59.0 % (50.0-68.0) 03/03/18 05:30 Lymph % (Auto) 26.5 % (22.0-35.0) 03/03/18 05:30 Hill % (Auto) 11.4 % (1.0-6.0) H 03/03/18 05:30 Eos % (Auto) 2.9 % (1.5-5.0) 03/03/18 05:30 Baso % (Auto) 0.2 % (0.0-3.0) 03/03/18 05:30 Gran # 2.63 (1.4-6.5) 03/03/18 05:30 Lymph # (Auto) 1.2 (1.2-3.4) 03/03/18 05:30 Hill # (Auto) 0.5 (0.1-0.6) 03/03/18 05:30 Eos # (Auto) 0.1 (0.0-0.7) 03/03/18 05:30 Baso # (Auto) 0.01 K/mm3 (0.0-2.0) 03/03/18 05:30 PT 12.2 SECONDS (9.4-12.5) 03/03/18 05:00 INR 1.06 (0.93-1.08) 03/03/18 05:00 APTT 33.7 Seconds (25.1-36.5) 03/03/18 05:00 Sodium 138 mmol/L (132-148) 03/03/18 05:30 Potassium 3.8 mmol/L (3.6-5.0) 03/03/18 05:30 Chloride 102 mmol/L (98-107) 03/03/18 05:30 Carbon Dioxide 27 mmol/L (21-33) 03/03/18 05:30 Anion Gap 13 (10-20) 03/03/18 05:30 BUN 14 mg/dL (7-21) 03/03/18 05:30 Creatinine 0.5 mg/dl (0.8-1.5) L 03/03/18 05:30 Est GFR ( Amer) > 60 03/03/18 05:30 Est GFR (Non-Af Amer) > 60 03/03/18 05:30 Random Glucose 140 mg/dL (70-110) H 03/03/18 05:30 Calcium 8.6 mg/dL (8.4-10.5) 03/03/18 05:30 Phosphorus 2.8 mg/dL (2.5-4.5) 03/03/18 05:30 Magnesium 1.5 mg/dL (1.7-2.2) L 03/03/18 05:30 Total Bilirubin 1.1 mg/dL (0.2-1.3) 03/03/18 05:30 AST 115 U/L (17-59) H D 03/03/18 05:30 ALT 131 U/L (7-56) H 03/03/18 05:30 Alkaline Phosphatase 53 U/L (38-126) 03/03/18 05:30 Total Protein 6.8 g/dL (5.8-8.3) 03/03/18 05:30 Albumin 3.4 g/dL (3.0-4.8) 03/03/18 05:30 Globulin 3.3 gm/dL 03/03/18 05:30 Albumin/Globulin Ratio 1.0 (1.1-1.8) L 03/03/18 05:30 Lipase 101 U/L (23-300) 03/02/18 06:30 Urine Color Dark yellow (YELLOW) 03/02/18 06:30 Urine Appearance Sl cloudy (CLEAR) 03/02/18 06:30 Urine pH 6.0 (4.7-8.0) 03/02/18 06:30 Ur Specific [place] >= 1.030 (1.005-1.035) 03/02/18 06:30 Urine Protein 30 mg/dL (<30 mg/dL) H 03/02/18 06:30 Urine Glucose (UA) Negative mg/dL (NEGATIVE) 03/02/18 06:30 Urine Ketones Trace mg/dL (NEGATIVE) H 03/02/18 06:30 Urine Blood Negative (NEGATIVE) 03/02/18 06:30 Urine Nitrate Negative (NEGATIVE) 03/02/18 06:30 Urine Bilirubin Negative (NEGATIVE) 03/02/18 06:30 Urine Urobilinogen 0.2 E.U./dL (<1 E.U./dL) 03/02/18 06:30 Ur Leukocyte Esterase Trace Carol/uL (NEGATIVE) H 03/02/18 06:30 Urine RBC 0 - 2 /hpf (0-2) 03/02/18 06:30 Urine WBC 15 - 20 /hpf (0-6) 03/02/18 06:30 Ur Epithelial Cells 0 - 2 /hpf (0-5) 03/02/18 06:30 Urine Bacteria Few (NEG) 03/02/18 06:30 Urine Other Mucus 03/02/18 06:30 Salicylates < 1 mg/dL (2.0-20.0) L 03/02/18 06:30 Urine Opiates Screen Positive (NEGATIVE) H 03/02/18 06:30 Urine Methadone Screen Negative (NEGATIVE) 03/02/18 06:30 Acetaminophen < 10.0 ug/ml (10.0-20.0) L 03/02/18 06:30 Ur Barbiturates Screen Negative (NEGATIVE) 03/02/18 06:30 Ur Phencyclidine Scrn Negative (NEGATIVE) 03/02/18 06:30 Ur Amphetamines Screen Negative (NEGATIVE) 03/02/18 06:30 U Benzodiazepines Scrn Positive (NEGATIVE) H 03/02/18 06:30 U Oth Cocaine Metabols Negative (NEGATIVE) 03/02/18 06:30 U Cannabinoids Screen Negative (NEGATIVE) 03/02/18 06:30 Alcohol, Quantitative 81 mg/dL (0-10) H 03/02/18 06:30 - Hospital Course Hospital Course: 57 year old male with a past medical history of tobacco abuse, chronic back pain , polysubstance abuse, chronic alcohol abuse, hypertension, and COPD presenting with alcohol intoxication. Patient reported suicidal ideation without plan. Ana was seen by psychiatry. Patient was treated for alcohol withdrawal with Ativan and IV fluids. Patient was counseled on cessation of tobacco, heroin, and alcohol. Patient became agitated during his hospital stay demanding increases in his medication. Patient was evaluated to have control of his withdrawal symptoms with Ativan regiment. Patient did during his stay report he would be interested in going to the inpatient psychiatric unit. Patient decided to sign out against medical advice. Patient case was discussed with psychiatry, who reported patient was competent to make his decisions and approved to sign out against medical advice. Patient was instructed to return to ED if he began to have worsening symptoms of substance withdrawal, chest pain, shortness of breath, intractable abdominal pain, weakness, focal deficits or trauma. Patient was instructed to follow up with [facility] neighborhood clinic and director teen post for findings of neuroendocrine tumor ofound on colonoscopy. Patient was in understanding and agreeable. - Date & Time of H&P Date of H&P: 03/02/18 Time of H&P: 07:45 Discharge Exam - Head Exam Head Exam: ATRAUMATIC, NORMAL INSPECTION, NORMOCEPHALIC - Additional Findings Additional findings: see physical exam from today's progress note Discharge Plan - Follow Up Plan Condition: FAIR Disposition: AGAINST MEDICAL ADVICE
--- NOTE | 2018-03-03 23:17 | CON ---
STORY OF PRESENT ILLNESS: The patient is a single, homeless 57-year-old white male with long and debilitating history of alcohol dependency for over 40 years, opiate dependency since 2000 as well as cocaine abuse for almost 30 years, history of depression as well as superficial suicidal gestures, no current outpatient psychiatric treatment or psychiatric medications, though has previously followed by the [facility] who was admitted medically for alcohol withdrawal symptoms after he presented to the ER, intoxicated with suicidal thoughts and requesting a place to stay for the night. I reviewed the patient's recent notes as well as the patient's prior admission and met with the patient at bedside. Patient is superficially cooperative, appears tired and his focus is fair, responses are generally constricted and thought process is coherent. The patient continues to report that he is depressed. He feels as though he is withdrawing from alcohol as well as opiates. He has muscle aches, nausea, headaches, and fatigue. The patient also reports that he is depressed and feels helpless. He denies enjoying life. He has no energy and he is poorly sleeping. This is all within the context of using about a pint of vodka daily with 1 to two 6-packs of beer daily as well as about 1 to 2 bags of heroin daily--patient is very aware about the consequences of his substance use The patient does have a history of cocaine use, but he only uses "once in a blue [place]." The patient reports his main stressors are his drug use and his homelessness. Patient denies having any active or passive suicidal thoughts. He denies hallucinations and his affect is constricted and he does not appear to be responding to internal stimuli. Delusions were not elicited. His insight and judgement are fair; however and he has been in control on the unit and cooperative with staff thus far. It is worth noting the patient is oriented to month and year and location at this time. PSYCHIATRIC HISTORY: The patient indicates prior psychiatric hospitalizations this year at [facility]. He was treated for depression and vague suicidal thoughts in context of current drug and alcohol use. Patient was not discharged on any psychiatric medications, but given the diagnosis of opiate dependency severe, alcohol dependency severe and depression NOS. He has also been treated at [facility] in the past for depression and drug use. The patient cannot recall any prior psychiatric medication trial. In this regard, he cannot recall having prior beneficial medication trial. SOCIAL HISTORY: Patient was born and raised in [place]. He is single. He has one adult child. 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 Patient started using heroin about 5 years ago and uses about 1 to 2 bags daily. Patient only has a grammar school education. He is not currently working due to aforementioned fall off a ladder in 2000. The patient reports that he has been drinking since age of 8 and he has history of when he is drunk. He has a history of multiple detoxes at [facility]. He denies any history of rehab. He denies any history of DT, though does indicate that he has withdrawal seizures in the past, but cannot recall the most recent one and says it was long time ago. Regarding his cocaine use, he uses about "once in a blue [place]." He started using cocaine at age 28. He denies any other substance use at this time. He had UDS on 03/02/2018 was positive for opiates and benzos and DEAN was 81. Patient indicates that he has been homeless for over 8 years. RELEVANT PSYCHIATRIC MEDICATIONS: Include Ativan 2 mg IV every 6 p.r.n. and Ativan 1 mg IV every 2 p.r.n. Vital signs were reviewed by this provider. They are relatively stable this morning. Labs were reviewed by this provider. CBC is generally within normal limits except for decrease in hemoglobin and hematocrit. AST and ALT remain elevated at 150 and 131 respectively, random glucose is 140, it is elevated. IMPRESSION: Depression, not otherwise specified, likely substance abuse and mood disorder, opiate use disorder severe, opiate withdrawal, alcohol use disorder severe, alcohol withdrawal, cocaine abuse. RECOMMENDATIONS: I would continue with treating the patient's alcohol withdrawal with Ativan. Medical team should follow up regarding alcohol withdrawal management. I would also strongly recommend that medical team continue multivitamins and thiamine. Psychiatry will continue to follow up the patient and monitor his symptoms. So, this is likely substance abuse related. He might benefit from inpatient hospitalization if he agrees to voluntary transfer. Patient does not require 1:1 any longer. He is not an active danger to himself. Psychiatry will follow up with the patient tomorrow, 03/04/2018. Margarito Ortiz MD [facility] # [id number] ERLIN
[2018-03-04] MEDS ORDERED: Multivitamin With Minerals Tab PO SCH (08:00)
== END 2018-03-03 17:49 | disposition left against medical advice (07) | DRG 743 ==
LOC: ED 23:29 → ERH 03-02 07:30 → 2RNO 03-02 12:24
PROVIDERS: ADMIT Internal Medicine; ATTEND Internal Medicine
DX: F10.239 Alcohol dependence with withdrawal, unspecified (principal); F11.20 Opioid dependence, uncomplicated; J44.9 Chronic obstructive pulmonary disease, unspecified; N39.0 Urinary tract infection, site not specified; R45.851 Suicidal ideations; E83.42 Hypomagnesemia; F41.9 Anxiety disorder, unspecified; D3A.8 Other benign neuroendocrine tumors; M54.9 Dorsalgia, unspecified; G89.29 Other chronic pain; F32.9 Major depressive disorder, single episode, unspecified; F14.10 Cocaine abuse, uncomplicated; I10 Essential (primary) hypertension; F17.210 Nicotine dependence, cigarettes, uncomplicated; Z59.0 Homelessness

== ENCOUNTER 2018-03-08 21:35 | Observation (INO) | payer MEDICAID ==
[2018-03-08 21:46] VITALS: BMI 29.0
[2018-03-08] MEDS ORDERED: Albuterol-Ipratrop 3 mg / 0.5 (3 ml) UD IH STA (22:13)
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
[2018-03-09 00:26] LABS: HEMOGLOBIN 12.7 g/dL (14.0-18.0); MEAN CELL VOLUME 96.3 fl (80.0-105.0); MEAN CORPUSCULAR HEMOGLOBIN 33.5 pg (25.0-35.0); MEAN CORPUSCULAR HGB CONC 34.8 g/dl (31.0-37.0); MEAN PLATELET VOLUME 8.8 fl (7.0-11.0); RBC 3.79 10^6/uL (3.5-6.1); RED CELL DISTRIBUTION WIDTH 13.1 % (11.5-14.5); WHITE BLOOD COUNT 4.9 10^3/ul (4.5-11.0)
[2018-03-09 00:37] LABS: INR 0.99 (0.93-1.08); PARTIAL THROMBOPLASTIN TIME 33.1 Seconds (25.1-36.5); PROTHROMBIN TIME 11.3 SECONDS (9.4-12.5)
[2018-03-09 00:43] LABS: ALB/GLOB RATIO 1.2 (1.1-1.8); ALBUMIN 3.9 g/dL (3.0-4.8); ALT/SGPT 131 U/L (7-56); AST/SGOT 128 U/L (17-59); BLOOD UREA NITROGEN 12 mg/dL (7-21); CALCIUM 8.6 mg/dL (8.4-10.5); GFR AFRICAN-AMERICAN > 60; GFR NON-AFRICAN AMERICAN > 60
[2018-03-09 00:54] LABS: TROPONIN I < 0.01 ng/mL
[2018-03-09] MEDS ORDERED: Potassium Chloride 20 mEq ER Tab PO STA (03:06)
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
[2018-03-09] MEDS ORDERED: Morphine 2 mg/ml ISec IVP PRN (06:10)
[2018-03-09] MEDS: Morphine 2 mg/ml ISec IVP PRN ×3 (06:37→18:40)
[2018-03-09 06:43] LABS: BASO # 0.02 K/mm3 (0.0-2.0); BASO % 0.5 % (0.0-3.0); EOS # 0.2 (0.0-0.7); GRAN # 1.72 (1.4-6.5); GRAN % 45.4 % (50.0-68.0); HEMOGLOBIN 12.9 g/dL (14.0-18.0); LYMPH # 1.1 (1.2-3.4); MEAN CELL VOLUME 96.4 fl (80.0-105.0); MEAN CORPUSCULAR HEMOGLOBIN 33.1 pg (25.0-35.0); MEAN CORPUSCULAR HGB CONC 34.3 g/dl (31.0-37.0); MEAN PLATELET VOLUME 9.2 fl (7.0-11.0); MONO # 0.8 (0.1-0.6); MONO % 21.1 % (1.0-6.0); PLATELET COUNT 138 10^3/uL (120.0-450.0); RED CELL DISTRIBUTION WIDTH 13.2 % (11.5-14.5); WHITE BLOOD COUNT 3.8 10^3/ul (4.5-11.0)
[2018-03-09 06:55] LABS: ALB/GLOB RATIO 1.1 (1.1-1.8); ALBUMIN 3.7 g/dL (3.0-4.8); ALT/SGPT 126 U/L (7-56); AST/SGOT 114 U/L (17-59); BLOOD UREA NITROGEN 11 mg/dL (7-21); CALCIUM 8.6 mg/dL (8.4-10.5); GFR AFRICAN-AMERICAN > 60; GFR NON-AFRICAN AMERICAN > 60; HDL CHOLESTEROL 94 mg/dL (29-60)
[2018-03-09 07:02] LABS: LDL CHOLESTEROL 66 mg/dL (0-129)
[2018-03-09 07:03] LABS: TROPONIN I < 0.01 ng/mL
[2018-03-09] MEDS ORDERED: Magnesium 2 gm/50 ml NS 2 GM/50 ML BAG IVPB ONE ×2 (07:29→08:30)
[2018-03-09] MEDS ORDERED: Magnesium Sulfate 2 GM in 50 ml Water IVPB ONE (07:30)
[2018-03-09] MEDS ORDERED: Multivitamin (MVI) 10 ML, Thiamine 100 MG, Folic Acid 1 MG in Sodium Chloride 0.9% 1,00... IV ONE (07:34)
[2018-03-09 07:56] LABS: BASOPHIL 2 % (0.0-1.0); EOSINOPHIL 6 % (0.0-3.0); LYMPHOCYTE 20 % (22.0-35.0); MONOCYTE 16 % (1.0-6.0); NEUTROPHIL 56 % (50.0-70.0)
[2018-03-09 07:57] LABS: PLATELET ESTIMATE NORMAL (NORMAL)
--- NOTE | 2018-03-09 08:55 | RAD ---
HISTORY: chest pain COMPARISON: Portable chest 03/02/2018. FINDINGS: LUNGS: Borderline medial basilar airspace disease versus crowding of the bronchovascular markings. Remaining lung quiroz are unremarkable otherwise bilaterally. PLEURA: No significant pleural effusion identified, no pneumothorax apparent. CARDIOVASCULAR: Normal. OSSEOUS STRUCTURES: No significant abnormalities. VISUALIZED UPPER ABDOMEN: Normal. OTHER FINDINGS: None. IMPRESSION: Likely crowding of the bronchovascular markings medial right base versus trace airspace disease here. The remainder of the examination appears stable and unremarkable.
--- NOTE | 2018-03-09 13:00 | CARD ---
APPROVED REPORT EKG Measurement Heart [id number] <Conclusion> Marked sinus bradycardia Abnormal ECG
--- NOTE | 2018-03-09 13:05 | CARD ---
APPROVED REPORT EKG Measurement Heart [id number] <Conclusion> Normal sinus rhythm Normal ECG
[2018-03-09 13:08] LABS: BARBITURATES, UR NEGATIVE (NEGATIVE); BENZODIAZEPINES, UR POSITIVE (NEGATIVE); OPIATES, UR POSITIVE (NEGATIVE); PHENCYCLIDINE, UR NEGATIVE (NEGATIVE)
--- NOTE | 2018-03-09 18:07 | CARD ---
APPROVED REPORT EXAM: Two-dimensional and M-mode echocardiogram with Doppler and color Doppler. INDICATION Chest Pain 2D DIMENSIONS Left Atrium (2D)4.1 (1.6-4.0cm)IVSd1.1 (0.7-1.1cm) LVDd5.7 (3.9-5.9cm)PWd1.1 (0.7-1.1cm) LVDs4.2 (2.5-4.0cm)FS (%) 27.1 % LVEF (%)52.0 (>50%) M-Mode DIMENSIONS Aortic Root3.10 (2.2-3.7cm)Aortic Cusp Exc.2.10 (1.5-2.0cm) Aortic Valve AoV Peak Rekhuksg821.0cm/Ramya Peak GR.6mmHg Mitral Valve E/A ratio0.0 TDI E/Lateral E'0.0E/Medial E'0.0 Tricuspid Valve TR Peak [id number] [id number] Peak Gr.17mmHg [id number] LEFT VENTRICLE The left ventricle is normal size. There is normal left ventricular wall thickness. The left ventricular function is normal. The left ventricular ejection fraction is within the normal range. There is normal LV segmental wall motion. Transmitral Doppler flow pattern is Grade I-abnormal relaxation pattern. RIGHT VENTRICLE The right ventricle is normal size. There is normal right ventricular wall thickness. The right ventricular systolic function is normal. ATRIA The left atrium size is normal. The right atrium size is normal. AORTIC VALVE The aortic valve is not well visualized. No aortic regurgitation is present. There is no aortic valvular stenosis. MITRAL VALVE The mitral valve is normal in structure. There is no mitral valve regurgitation noted. TRICUSPID VALVE The tricuspid valve is normal in structure. There is no tricuspid valve regurgitation noted. PULMONIC VALVE The pulmonary valve is normal in structure. There is no pulmonic valvular regurgitation. There is no pulmonic valvular stenosis. GREAT VESSELS The aortic root is normal in size. PERICARDIAL EFFUSION There is no pericardial effusion. <Conclusion> The left ventricle is normal size. There is normal left ventricular wall thickness. The left ventricular function is normal. The left ventricular ejection fraction is within the normal range. There is normal LV segmental wall motion. Transmitral Doppler flow pattern is Grade I-abnormal relaxation pattern.
--- NOTE | 2018-03-09 21:45 | CON ---
DATE: 03/09/2018 CARDIOLOGY CONSULTATION REASON FOR CONSULTATION: Shortness of breath. HISTORY OF PRESENT ILLNESS: The patient is a 57-year-old male, who has a history of alcohol and drug abuse, history of hypertension and chronic obstructive lung disease. He is active smoker. He presented because of shortness of breath. The patient stated that he did have heart attack in the past, but did refuse to undergo cardiac catheterization at [facility]. The patient has a history of cocaine abuse in the past. The patient denies any retrosternal chest pain at this time. SOCIAL HISTORY: The patient is a smoker, a drinker, a former cocaine abuser. Used to work as a construction tech. PAST MEDICAL HISTORY: History of complex left leg fracture twice related to his work as a construction tech, status post open reduction and internal fixation of the left lower leg. MEDICATIONS: Ativan 1 mg intravenously every 6 hours p.r.n., heparin 5000 units subcutaneous twice a day, Lopressor 25 mg twice a day, Protonix 40 mg intravenous once a day, multivitamin infusion including folic acid and thiamine. PHYSICAL EXAMINATION: GENERAL: The patient is a middle-aged male, who does not appear to be in acute distress. VITAL SIGNS: Blood pressure 165/100, heart rate 50, temperature 98.7, respirations 19. HEENT: Normocephalic. CHEST: Bilateral rhonchi. HEART: S1 and S2 regular. ABDOMEN: Soft. EXTREMITIES: Trace leg edema. LABORATORY DATA: EKG revealed sinus bradycardia at the rate of 43. Chest x-ray revealed borderline cardiomegaly with prominent bronchovascular markings. Echocardiographic study in 05/2017 revealed ejection fraction in the range of 40% to 45%, with mild hypokinesis in the basal anteroseptal wall. A stress test in 09/2014 reported essentially normal SPECT myocardial perfusion study, heterogeneous activities and fixed apical and inferior defect most likely due to soft tissue and diaphragmatic attenuation respectively, normal gated wall motion and thickening of the left ventricle. Today's SMA-7 is within normal limits except for creatinine of 0.4. AST and ALT are 114 and 126 respectively with slight improvement compared to yesterday. Three sets of troponins are negative. TSH level is within normal limit. Lipid profile is within normal limit, except for HDL of 94. PT, PTT and INR are within normal limits. Hemoglobin and hematocrit are 12.9 and 37.6, white count 3.8, platelet count 138,000. ASSESSMENT: 1. Exacerbation of congestive heart failure. 2. Consider alcoholic cardiomyopathy. 3. Rule out underlying coronary artery disease. 4. History of cocaine abuse in the past. RECOMMENDATIONS: Continue current subcutaneous heparin 5000 units every 12 hours, hold Lopressor for now because of sinus bradycardia. Start Cozaar 25 mg orally once a day. Obtain urine for drug screen. Chan Alicea MD
[2018-03-10] MEDS: Morphine 2 mg/ml ISec IVP PRN ×2 (01:54→07:52)
[2018-03-10] MEDS ORDERED: Pantoprazole 40 mg EC Tab PO SCH (06:00)
[2018-03-10 06:52] VITALS: BP 150/86; RESP 20; TEMP 98.2; O2SAT 97
[2018-03-10 06:55] LABS: BASO # 0.01 K/mm3 (0.0-2.0); BASO % 0.2 % (0.0-3.0); EOS # 0.1 (0.0-0.7); EOS % 3.1 % (1.5-5.0); GRAN # 2.24 (1.4-6.5); HEMOGLOBIN 13.6 g/dL (14.0-18.0); LYMPH # 1.4 (1.2-3.4); MEAN CELL VOLUME 94.6 fl (80.0-105.0); MEAN CORPUSCULAR HEMOGLOBIN 33.3 pg (25.0-35.0); MEAN CORPUSCULAR HGB CONC 35.1 g/dl (31.0-37.0); MEAN PLATELET VOLUME 9.6 fl (7.0-11.0); MONO # 0.8 (0.1-0.6); MONO % 17.7 % (1.0-6.0); RBC 4.09 10^6/uL (3.5-6.1); RED CELL DISTRIBUTION WIDTH 12.9 % (11.5-14.5); WHITE BLOOD COUNT 4.6 10^3/ul (4.5-11.0)
[2018-03-10 07:21] LABS: ALBUMIN 3.6 g/dL (3.0-4.8); BLOOD UREA NITROGEN 9 mg/dL (7-21); CALCIUM 8.8 mg/dL (8.4-10.5); GFR AFRICAN-AMERICAN > 60; GFR NON-AFRICAN AMERICAN > 60
[2018-03-10 07:22] LABS: ALB/GLOB RATIO 1.2 (1.1-1.8); ALT/SGPT 115 U/L (7-56); AST/SGOT 90 U/L (17-59)
[2018-03-10] MEDS ORDERED: Magnesium 2 gm/50 ml NS 2 GM/50 ML BAG IVPB ONE (08:50)
--- NOTE | 2018-03-10 10:23 | PN ---
DATE: 03/10/2018 FOLLOWUP SUBJECTIVE: The patient denies any chest pain. PHYSICAL EXAMINATION: VITAL SIGNS: Blood pressure 150/86, heart rate 42, temperature 98.2, respirations 20. HEENT: Normocephalic. CHEST: Clear. HEART: S1 and S2 regular. EXTREMITIES: No edema. LABORATORY DATA: Hemoglobin and hematocrit 13.6 and 38.7. White count and platelet count are within normal limits. Today's SMA-7 is within normal limit except for creatinine 0.4, magnesium is still below normal at 1.6. Echocardiography study revealed normal ejection fraction with grade I abnormal relaxation pattern. ASSESSMENT: 1. Consider diastolic heart failure. 2. Ethyl alcohol abuse. 3. Hypomagnesemia. RECOMMENDATIONS: The patient is currently receiving IV magnesium replacement. Continue Cozaar 25 mg once a day, Protonix 40 mg once a day and subcutaneous heparin 5000 units twice a day. No further cardiac workup is indicated. Chan Alicea MD
--- NOTE | 2018-03-10 10:39 | CP.PCM.DIS ---
<Opal Link - Last Filed: 03/10/18 15:35> Provider - Provider Date of Admission: 03/09/18 04:39 Attending physician: Macario Moreno MD Primary care physician: NO FAMILY PROVIDER Consults: Nell Alicea Time Spent in preparation of Discharge (in minutes): 35 Diagnosis - Discharge Diagnosis (1) Alcohol withdrawal Status: Acute (2) Chest pain Status: Acute (3) Opioid use disorder, severe, dependence Status: Acute Hospital Course - Lab Results Lab Results: Most Recent Lab Values WBC 4.6 10^3/ul (4.5-11.0) D 03/10/18 06:30 RBC 4.09 10^6/uL (3.5-6.1) 03/10/18 06:30 Hgb 13.6 g/dL (14.0-18.0) L 03/10/18 06:30 Hct 38.7 % (42.0-52.0) L 03/10/18 06:30 MCV 94.6 fl (80.0-105.0) 03/10/18 06:30 MCH 33.3 pg (25.0-35.0) 03/10/18 06:30 MCHC 35.1 g/dl (31.0-37.0) 03/10/18 06:30 RDW 12.9 % (11.5-14.5) 03/10/18 06:30 Plt Count 148 10^3/uL (120.0-450.0) 03/10/18 06:30 MPV 9.6 fl (7.0-11.0) 03/10/18 06:30 Gran % 49.0 % (50.0-68.0) L 03/10/18 06:30 Lymph % (Auto) 30.0 % (22.0-35.0) 03/10/18 06:30 Freeborn % (Auto) 17.7 % (1.0-6.0) H 03/10/18 06:30 Eos % (Auto) 3.1 % (1.5-5.0) 03/10/18 06:30 Baso % (Auto) 0.2 % (0.0-3.0) 03/10/18 06:30 Gran # 2.24 (1.4-6.5) 03/10/18 06:30 Lymph # (Auto) 1.4 (1.2-3.4) 03/10/18 06:30 Freeborn # (Auto) 0.8 (0.1-0.6) H 03/10/18 06:30 Eos # (Auto) 0.1 (0.0-0.7) 03/10/18 06:30 Baso # (Auto) 0.01 K/mm3 (0.0-2.0) 03/10/18 06:30 Neutrophils % (Manual) 56 % (50.0-70.0) 03/09/18 06:00 Lymphocytes % (Manual) 20 % (22.0-35.0) L 03/09/18 06:00 Monocytes % (Manual) 16 % (1.0-6.0) H 03/09/18 06:00 Eosinophils % (Manual) 6 % (0.0-3.0) H 03/09/18 06:00 Basophils % (Manual) 2 % (0.0-1.0) H 03/09/18 06:00 Platelet Evaluation Normal (NORMAL) 03/09/18 06:00 PT 11.3 SECONDS (9.4-12.5) 03/09/18 00:10 INR 0.99 (0.93-1.08) 03/09/18 00:10 APTT 33.1 Seconds (25.1-36.5) 03/09/18 00:10 Sodium 137 mmol/L (132-148) 03/10/18 06:30 Potassium 4.0 mmol/L (3.6-5.0) 03/10/18 06:30 Chloride 102 mmol/L (98-107) 03/10/18 06:30 Carbon Dioxide 25 mmol/L (21-33) 03/10/18 06:30 Anion Gap 13 (10-20) 03/10/18 06:30 BUN 9 mg/dL (7-21) 03/10/18 06:30 Creatinine 0.4 mg/dl (0.8-1.5) L 03/10/18 06:30 Est GFR ( Amer) > 60 03/10/18 06:30 Est GFR (Non-Af Amer) > 60 03/10/18 06:30 Random Glucose 102 mg/dL (70-110) 03/10/18 06:30 Hemoglobin A1c 5.4 % (4.2-6.5) 03/09/18 06:00 Calcium 8.8 mg/dL (8.4-10.5) 03/10/18 06:30 Phosphorus 3.2 mg/dL (2.5-4.5) 03/10/18 06:30 Magnesium 1.6 mg/dL (1.7-2.2) L 03/10/18 06:30 Total Bilirubin 1.0 mg/dL (0.2-1.3) 03/10/18 06:30 AST 90 U/L (17-59) H D 03/10/18 06:30 ALT 115 U/L (7-56) H 03/10/18 06:30 Alkaline Phosphatase 57 U/L (38-126) 03/10/18 06:30 Lactate Dehydrogenase 609 U/L (333-699) 03/09/18 00:10 Total Creatine Kinase 61 U/L (35-230) 03/09/18 00:10 Troponin I < 0.01 ng/mL 03/09/18 15:50 Total Protein 6.6 g/dL (5.8-8.3) 03/10/18 06:30 Albumin 3.6 g/dL (3.0-4.8) 03/10/18 06:30 Globulin 3.0 gm/dL 03/10/18 06:30 Albumin/Globulin Ratio 1.2 (1.1-1.8) 03/10/18 06:30 Triglycerides 65 mg/dL (35-160) 03/09/18 06:00 Cholesterol 185 mg/dL (130-200) 03/09/18 06:00 LDL Cholesterol Direct 66 mg/dL (0-129) 03/09/18 06:00 HDL Cholesterol 94 mg/dL (29-60) H 03/09/18 06:00 TSH 3rd Generation 1.47 mIU/mL (0.46-4.68) 03/09/18 06:00 Urine Opiates Screen Positive (NEGATIVE) H 03/09/18 12:25 Urine Methadone Screen Negative (NEGATIVE) 03/09/18 12:25 Ur Barbiturates Screen Negative (NEGATIVE) 03/09/18 12:25 Ur Phencyclidine Scrn Negative (NEGATIVE) 03/09/18 12:25 Ur Amphetamines Screen Negative (NEGATIVE) 03/09/18 12:25 U Benzodiazepines Scrn Positive (NEGATIVE) H 03/09/18 12:25 U Oth Cocaine Metabols Negative (NEGATIVE) 03/09/18 12:25 U Cannabinoids Screen Negative (NEGATIVE) 03/09/18 12:25 Alcohol, Quantitative < 10 mg/dL (0-10) 03/09/18 00:10 - Hospital Course Hospital Course: 57 year old male with a past medical history of chronic back pain, hypertension , copd, polysubstance abuse, [place] (10 years ago) who comes in today complaining of left side chest pain that began 10p.m. last night. The patient reports sitting down watching tv when the pain began. He describes it as a pressure with no radiation to any other part of his body. Pt given metoprolol in ED. EKG showed no ST/T wave changes, troponins neg x 3. Echocardiogram showed EF 52%, normal segmental wall motion. UDS positive for opiates and benzos. Cardiology consulted, cleared patient for discharge. Physical therapy recommended home. Patient advised to stop opiate, benzos use, alcohol use. Patient agrees to the above plan. Patient to follow up with [facility] clinic for Hep B and C infection. Pt will need outpatient stress test. Pt discharged home with cozaar and protonix. Case seen and discussed with Dr Moreno. Opal Link, PGY1 Discharge Exam - Head Exam Head Exam: ATRAUMATIC, NORMAL INSPECTION, NORMOCEPHALIC - Eye Exam Eye Exam: EOMI, PERRL. absent: Conjunctival injection, Nystagmus, Scleral icterus Pupil Exam: NORMAL ACCOMODATION, PERRL. absent: Fixed, Irregular, Miosis, Unequal - ENT Exam ENT Exam: Mucous Membranes Moist - Neck Exam Neck exam: Full Rom - Respiratory Exam Respiratory Exam: Clear to PA & Lateral, NORMAL BREATHING PATTERN. absent: Chest Wall Tenderness, Rales, Rhonchi, Respiratory Distress, Stridor - Cardiovascular Exam Cardiovascular Exam: Bradycardia, +S1, +S2. absent: Systolic Murmur - GI/Abdominal Exam GI & Abdominal Exam: Normal Bowel Sounds, Soft. absent: Distended, Firm, Guarding, Organomegaly, Rebound, Rigid, Tenderness - Extremities Exam Extremities exam: normal inspection - Back Exam Back exam: NORMAL INSPECTION - Neurological Exam Neurological exam: Alert, Oriented x3 - Psychiatric Exam Psychiatric exam: Normal Affect, Normal Mood - Skin Skin Exam: Dry, Normal Color, Warm Discharge Plan - Discharge Medications Prescriptions: Losartan [Cozaar] 25 mg PO DAILY #30 tab Pantoprazole [Protonix EC Tab] 40 mg PO 0600 14 Days ect Tramadol HCl [Ultram] 25 mg PO Q6 #5 tablet - Follow Up Plan Condition: STABLE Disposition: HOME/ ROUTINE Instructions: Chest Pain That Is Not Caused by the Heart (DC), COPD Including Emphysema (DC), Chest Pain (DC), Drug Abuse and Drug Addiction (DC), Gastritis ( DC), Alcohol Withdrawal Additional Instructions: 1. Patient is clear for discharge home 2. For Hepatitis B and C infection, please follow up with [facility] Hepatitis Clinic 3. Please abstain from alcohol, opiate and tobacco abuse - we recommend AA and NA meetings 4. You will need stress test outpatient 5. Please follow up with Dr Omer, your PMD, within 1 week 6. Take Cozaar for your blood pressure. You can take protonix for gastritis symptoms. 7. If having any worsening symptoms, return to nearest ED Referrals: Cliff Omer MD [Medical Doctor] - <Macario Moreno - Last Filed: 03/10/18 17:09> Provider - Provider Date of Admission: 03/09/18 04:39 Attending physician: Macario Moreno MD Primary care physician: NO FAMILY [facility] Course - Lab Results Lab Results: Most Recent Lab Values WBC 4.6 10^3/ul (4.5-11.0) D 03/10/18 06:30 RBC 4.09 10^6/uL (3.5-6.1) 03/10/18 06:30 Hgb 13.6 g/dL (14.0-18.0) L 03/10/18 06:30 Hct 38.7 % (42.0-52.0) L 03/10/18 06:30 MCV 94.6 fl (80.0-105.0) 03/10/18 06:30 MCH 33.3 pg (25.0-35.0) 03/10/18 06:30 MCHC 35.1 g/dl (31.0-37.0) 03/10/18 06:30 RDW 12.9 % (11.5-14.5) 03/10/18 06:30 Plt Count 148 10^3/uL (120.0-450.0) 03/10/18 06:30 MPV 9.6 fl (7.0-11.0) 03/10/18 06:30 Gran % 49.0 % (50.0-68.0) L 03/10/18 06:30 Lymph % (Auto) 30.0 % (22.0-35.0) 03/10/18 06:30 Freeborn % (Auto) 17.7 % (1.0-6.0) H 03/10/18 06:30 Eos % (Auto) 3.1 % (1.5-5.0) 03/10/18 06:30 Baso % (Auto) 0.2 % (0.0-3.0) 03/10/18 06:30 Gran # 2.24 (1.4-6.5) 03/10/18 06:30 Lymph # (Auto) 1.4 (1.2-3.4) 03/10/18 06:30 Freeborn # (Auto) 0.8 (0.1-0.6) H 03/10/18 06:30 Eos # (Auto) 0.1 (0.0-0.7) 03/10/18 06:30 Baso # (Auto) 0.01 K/mm3 (0.0-2.0) 03/10/18 06:30 Neutrophils % (Manual) 56 % (50.0-70.0) 03/09/18 06:00 Lymphocytes % (Manual) 20 % (22.0-35.0) L 03/09/18 06:00 Monocytes % (Manual) 16 % (1.0-6.0) H 03/09/18 06:00 Eosinophils % (Manual) 6 % (0.0-3.0) H 03/09/18 06:00 Basophils % (Manual) 2 % (0.0-1.0) H 03/09/18 06:00 Platelet Evaluation Normal (NORMAL) 03/09/18 06:00 PT 11.3 SECONDS (9.4-12.5) 03/09/18 00:10 INR 0.99 (0.93-1.08) 03/09/18 00:10 APTT 33.1 Seconds (25.1-36.5) 03/09/18 00:10 Sodium 137 mmol/L (132-148) 03/10/18 06:30 Potassium 4.0 mmol/L (3.6-5.0) 03/10/18 06:30 Chloride 102 mmol/L (98-107) 03/10/18 06:30 Carbon Dioxide 25 mmol/L (21-33) 03/10/18 06:30 Anion Gap 13 (10-20) 03/10/18 06:30 BUN 9 mg/dL (7-21) 03/10/18 06:30 Creatinine 0.4 mg/dl (0.8-1.5) L 03/10/18 06:30 Est GFR ( Amer) > 60 03/10/18 06:30 Est GFR (Non-Af Amer) > 60 03/10/18 06:30 Random Glucose 102 mg/dL (70-110) 03/10/18 06:30 Hemoglobin A1c 5.4 % (4.2-6.5) 03/09/18 06:00 Calcium 8.8 mg/dL (8.4-10.5) 03/10/18 06:30 Phosphorus 3.2 mg/dL (2.5-4.5) 03/10/18 06:30 Magnesium 1.6 mg/dL (1.7-2.2) L 03/10/18 06:30 Total Bilirubin 1.0 mg/dL (0.2-1.3) 03/10/18 06:30 AST 90 U/L (17-59) H D 03/10/18 06:30 ALT 115 U/L (7-56) H 03/10/18 06:30 Alkaline Phosphatase 57 U/L (38-126) 03/10/18 06:30 Lactate Dehydrogenase 609 U/L (333-699) 03/09/18 00:10 Total Creatine Kinase 61 U/L (35-230) 03/09/18 00:10 Troponin I < 0.01 ng/mL 03/09/18 15:50 Total Protein 6.6 g/dL (5.8-8.3) 03/10/18 06:30 Albumin 3.6 g/dL (3.0-4.8) 03/10/18 06:30 Globulin 3.0 gm/dL 03/10/18 06:30 Albumin/Globulin Ratio 1.2 (1.1-1.8) 03/10/18 06:30 Triglycerides 65 mg/dL (35-160) 03/09/18 06:00 Cholesterol 185 mg/dL (130-200) 03/09/18 06:00 LDL Cholesterol Direct 66 mg/dL (0-129) 03/09/18 06:00 HDL Cholesterol 94 mg/dL (29-60) H 03/09/18 06:00 TSH 3rd Generation 1.47 mIU/mL (0.46-4.68) 03/09/18 06:00 Urine Opiates Screen Positive (NEGATIVE) H 03/09/18 12:25 Urine Methadone Screen Negative (NEGATIVE) 03/09/18 12:25 Ur Barbiturates Screen Negative (NEGATIVE) 03/09/18 12:25 Ur Phencyclidine Scrn Negative (NEGATIVE) 03/09/18 12:25 Ur Amphetamines Screen Negative (NEGATIVE) 03/09/18 12:25 U Benzodiazepines Scrn Positive (NEGATIVE) H 03/09/18 12:25 U Oth Cocaine Metabols Negative (NEGATIVE) 03/09/18 12:25 U Cannabinoids Screen Negative (NEGATIVE) 03/09/18 12:25 Alcohol, Quantitative < 10 mg/dL (0-10) 03/09/18 00:10 Attending/Attestation - Attestation I have personally seen and examined this patient.: Yes I have fully participated in the care of the patient.: Yes I have reviewed all pertinent clinical information, including history, physical exam and plan: Yes Notes (Text): 03/10/18 17:06 Attending note; Patient seen and examined with resident. Patient is a 57-year-old male with a past medical history of alcohol abuse, smoking, gastritis, opiate abuse, noncompliance with follow-up is admitted with atypical chest and upper abdominal pain. Cardiac enzymes negative. Echocardiogram normal. Cardiology evaluation appreciated. Mostly gastritis secondary to chronic alcohol abuse. Currently tolerating diet. Complete alcohol cessation is strongly advised. Started on Protonix. Opiate abuse; patient is taking opiates from streets. Complete drug abuse cessation is strongly advised. Active smoking; smoking cessation is strongly advised. Patient refused NicoDerm patch. PT evaluation appreciated. Discharge patient home today. Follow-up with PMD . 03/10/18 17:08
[2018-03-10 11:10] VITALS: PULSE 65
== END 2018-03-10 11:15 | disposition home or self-care (01) ==
LOC: ED 21:35 → ERH 03-09 04:39 → 2RSO 03-09 07:45
PROVIDERS: ADMIT Internal Medicine; ATTEND Internal Medicine
DX: F10.239 Alcohol dependence with withdrawal, unspecified (principal); F11.20 Opioid dependence, uncomplicated; I11.0 Hypertensive heart disease with heart failure; I50.33 Acute on chronic diastolic (congestive) heart failure; R07.9 Chest pain, unspecified; J44.9 Chronic obstructive pulmonary disease, unspecified; G89.29 Other chronic pain; M54.9 Dorsalgia, unspecified; K29.70 Gastritis, unspecified, without bleeding; E83.42 Hypomagnesemia; F17.210 Nicotine dependence, cigarettes, uncomplicated; I25.2 Old myocardial infarction; Z91.19 Patient's noncompliance with other medical treatment and regimen
CPT/HCPCS: 36415; 71045; 80053; 80061; 80320; 80324; 80345; 80346; 80349; 80353; 80358; 80361; 82550; 83036; 83615; 83735; 83992; 84100; 84443; 84484; 85025; 85027; 85610; 85730; 93005; 93306; 96374; 97116; 97161; 99285; C9113; G0378; G8978; G8979; G8980; J1644; J2060; J2270; J3411; J3475; J7030

== ENCOUNTER 2018-05-03 03:55 | Inpatient (IN) | payer MEDICAID ==
[2018-05-03 03:56] VITALS: BMI 29.0
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
[2018-05-03 05:29] LABS: ALB/GLOB RATIO 1.2 (1.1-1.8); ALBUMIN 4.1 g/dL (3.0-4.8); ALT/SGPT 123 U/L (7-56); AST/SGOT 126 U/L (17-59); BLOOD UREA NITROGEN 15 mg/dL (7-21); GFR NON-AFRICAN AMERICAN > 60; LIPASE 87 U/L (23-300)
[2018-05-03 05:42] LABS: TROPONIN I < 0.01 ng/mL
[2018-05-03 05:45] LABS: INR 0.97; PROTHROMBIN TIME 11.1 SECONDS (9.4-12.5)
--- NOTE | 2018-05-03 07:18 | ED PDOC ---
Physical Exam Vital Signs Temp Pulse Resp BP Pulse Ox 05/03/18 08:00 98.2 F 76 18 124/77 95 05/03/18 06:00 61 20 124/78 98 05/03/18 04:06 98.1 F 17 125/76 93 L Medical Decision Making ED Course and Treatment: 05/03/18 07:10 Patient endorsed to me by Dr. Baig. Patient brought in for chest pain, shortness of breath, and foot pain. Currently awaiting labs, Chest X-ray and Chest CT results at this time. EKG shows 89 BPM @ NSR, no STEMI. Upon re-eval by me Patient admits to drinking last night and is unable to recall what happened to him during that time. 05/03/2018 08:43 Chest X-ray IMPRESSION: No active pulmonary disease. Dictator: Elizabeth Goncalves MD 05/03/2018 08:[address] IMPRESSION: 1. Bibasilar nonspecific infiltrates and consolidation are present, with peribronchial cuffing/thickening consistent with atelectasis or pneumonia. 2. No CT evidence for pulmonary embolus. Dictator: Patricia Hartley MD 05/03/18 10:[address] findings- will rx w/ rocephin + azithro No ASA at the time given pending CTH findings Case discussed with Dr. Sai Austin (hospitalist resident), who has seen patient at bedside and states patient will be admitted under telemetry observation. - Lab Interpretations Lab Results: 05/03/18 04:55 05/03/18 04:55 Lab Results 05/03/18 08:30: Urine Opiates Screen Positive H, Urine Methadone Screen Negative , Ur Barbiturates Screen Negative, Ur Phencyclidine Scrn Negative, Ur Amphetamines Screen Negative, U Benzodiazepines Scrn Negative, U Oth Cocaine Metabols Positive H, U Cannabinoids Screen Negative 05/03/18 05:00: Triglycerides 110, Cholesterol 173, LDL Cholesterol Direct 56, HDL Cholesterol 86 H 05/03/18 04:55: WBC 7.3 D, RBC 4.16, Hgb 14.1, Hct 41.4 L, MCV 99.5 D, MCH 33.9, MCHC 34.1, RDW 13.4, Plt Count 182, MPV 9.6, Gran % 54.5, Lymph % (Auto) 30.6, [place] % (Auto) 12.4 H, Eos % (Auto) 2.1, Baso % (Auto) 0.4, Gran # 3.95, Lymph # (Auto) 2.2, [place] # (Auto) 0.9 H, Eos # (Auto) 0.2, Baso # (Auto) 0.03 05/03/18 04:55: Alcohol, Quantitative 52 H 05/03/18 04:55: Sodium 146, Potassium 3.5 L, Chloride 107, Carbon Dioxide 25, Anion Gap 18, BUN 15, Creatinine 0.6 L, Est GFR ( Amer) > 60, Est GFR ( Non-Af Amer) > 60, Random Glucose 93, Calcium 9.0, Total Bilirubin 0.5, AST 126 H D, ALT 123 H, Alkaline Phosphatase 62, Troponin I < 0.01, Total Protein 7.5, Albumin 4.1, Globulin 3.4, Albumin/Globulin Ratio 1.2, Lipase 87 05/03/18 04:55: PT 11.1, INR 0.97, APTT 33.0, D-Dimer, Quantitative 359 H - RAD Interpretation Radiology Orders: 05/03/18 04:34 CHEST PORTABLE [RAD] Stat 05/03/18 06:26 ANGIO CHEST PE PROTOCOL [CT] Stat 05/03/18 09:38 CERVICAL SPINE W/O CONTRAST [CT] Stat HEAD W/O CONTRAST [CT] Stat - Medication Orders Current Medication Orders: Thiamine HCl (Vitamin B1 Tab) 100 mg PO DAILY LINDA Discontinued Medications Ceftriaxone Sodium (Rocephin 1 Gram Ivpb) 1 gm in 100 mls @ 100 mls/hr IVPB ONCE ONE PRN Reason: Protocol Stop: 05/03/18 09:59 Last Admin: 05/03/18 09:16 Dose: 100 mls/hr eMAR Start Stop Document 05/03/18 09:16 SRE (Rec: 05/03/18 09:20 SRE [id number]) Intravenous Solution Start Date 05/03/18 Start Time 09:20 End Date 05/03/18 End time 10:20 Total Infusion Time 60 Azithromycin (Zithromax 500mg In Ns) 500 mg in 250 mls @ 167 mls/hr IVPB STAT STA PRN Reason: Protocol Stop: 05/03/18 10:29 Last Admin: 05/03/18 09:53 Dose: 167 mls/hr eMAR Start Stop Document 05/03/18 09:53 SRE (Rec: 05/03/18 09:54 SRE [id number]) Intravenous Solution Start Date 05/03/18 Start Time 09:53 End Date 05/03/18 End time 11:25 Total Infusion Time 92 Potassium Chloride (Klor-Con 10) 10 meq PO STAT STA Stop: 05/03/18 10:25 - Scribe Statement The provider has reviewed the documentation as recorded by the Denise Vines Provider Scribe Attestation: All medical record entries made by the Denise were at my direction and personally dictated by me. I have reviewed the chart and agree that the record accurately reflects my personal performance of the history, physical exam, medical decision making, and the department course for this patient. I have also personally directed, reviewed, and agree with the discharge instructions and disposition. Disposition/Present on Arrival - Present on Arrival Any Indicators Present on Arrival: No History of DVT/PE: No History of Uncontrolled Diabetes: No Urinary Catheter: No History of Decub. Ulcer: No History Surgical Site Infection Following: None - Disposition Have Diagnosis and Disposition been Completed?: Yes Diagnosis: Pneumonia Disposition Time: 09:00 Condition: GOOD
[2018-05-03 07:49] LABS: BASO # 0.03 K/mm3 (0.0-2.0); BASO % 0.4 % (0.0-3.0); EOS # 0.2 (0.0-0.7); EOS % 2.1 % (1.5-5.0); GRAN # 3.95 (1.4-6.5); GRAN % 54.5 % (50.0-68.0); HEMOGLOBIN 14.1 g/dL (14.0-18.0); LYMPH # 2.2 (1.2-3.4); LYMPH % 30.6 % (22.0-35.0); MEAN CELL VOLUME 99.5 fl (80.0-105.0); MEAN CORPUSCULAR HEMOGLOBIN 33.9 pg (25.0-35.0); MEAN CORPUSCULAR HGB CONC 34.1 g/dl (31.0-37.0); MEAN PLATELET VOLUME 9.6 fl (7.0-11.0); MONO # 0.9 (0.1-0.6); MONO % 12.4 % (1.0-6.0); RBC 4.16 10^6/uL (3.5-6.1); RED CELL DISTRIBUTION WIDTH 13.4 % (11.5-14.5); WHITE BLOOD COUNT 7.3 10^3/ul (4.5-11.0)
[2018-05-03 08:21] LABS: HDL CHOLESTEROL 86 mg/dL (29-60)
[2018-05-03 08:32] LABS: LDL CHOLESTEROL 56 mg/dL (0-129)
--- NOTE | 2018-05-03 08:46 | RAD ---
Date of service: 05/03/2018 HISTORY: Chest pain COMPARISON: 03/08/2018. FINDINGS: LUNGS: The lungs are well inflated and clear. PLEURA: No significant pleural effusion identified, no pneumothorax apparent. CARDIOVASCULAR: Normal. OSSEOUS STRUCTURES: No significant abnormalities. VISUALIZED UPPER ABDOMEN: Normal. OTHER FINDINGS: None. IMPRESSION: No active pulmonary disease.
--- NOTE | 2018-05-03 08:51 | CT ---
Date of service: 05/03/2018 PROCEDURE: CT Chest with contrast (Pulmonary Angiogram) HISTORY: pulmonary embolism COMPARISON: None available. TECHNIQUE: Axial computed tomography images were obtained of the chest in the pulmonary arterial phase of enhancement. Coronal and sagittal reformatted images were created and reviewed. Intravenous contrast dose: 100 cc of Omni 350 Radiation dose: Total exam DLP = 575 mGy-cm. This CT exam was performed using one or more of the following dose reduction techniques: Automated exposure control, adjustment of the mA and/or kV according to patient size, and/or use of iterative reconstruction technique. FINDINGS: PULMONARY ARTERIES: Unremarkable. No pulmonary embolism. AORTA: No acute findings. No thoracic aortic aneurysm. LUNGS: Minimal bibasilar consolidation in the dependent portions of both lungs. PLEURAL SPACES: Unremarkable. No effusion or pneumothorax. HEART: Unremarkable. No cardiomegaly. No significant pericardial effusion. LYMPH NODES: No lymphadenopathy. BONES, CHEST WALL: Unremarkable. No fracture or destructive lesion OTHER FINDINGS: None IMPRESSION: Unremarkable CT pulmonary angiogram. No pulmonary embolus.
[2018-05-03] MEDS ORDERED: cefTRIAXone 1 gm 1 GM/100 ML BAG IVPB ONE (09:00)
[2018-05-03] MEDS ORDERED: Azithromycin 500MG/NS 250ml 500 MG/250 ML BAG IVPB STA (09:00)
[2018-05-03 09:30] LABS: BARBITURATES, UR NEGATIVE (NEGATIVE); OPIATES, UR POSITIVE (NEGATIVE); PHENCYCLIDINE, UR NEGATIVE (NEGATIVE)
[2018-05-03 09:33] LABS: BENZODIAZEPINES, UR NEGATIVE (NEGATIVE)
[2018-05-03] MEDS ORDERED: Potassium Chloride 10 mEq ER Tab PO STA (10:24)
[2018-05-03] MEDS ORDERED: Albuterol-Ipratrop 3 mg / 0.5 (3 ml) UD IH PRN (10:59)
--- NOTE | 2018-05-03 11:30 | CARD ---
APPROVED REPORT Date of service: 05/03/2018 EKG Measurement Heart [id number] <Conclusion> Normal sinus rhythm Normal ECG
--- NOTE | 2018-05-03 11:42 | CT ---
Date of service: 05/03/2018 PROCEDURE: CT HEAD WITHOUT CONTRAST. HISTORY: etoh COMPARISON: None available. TECHNIQUE: Axial computed tomography images were obtained through the head/brain without intravenous contrast. Radiation dose: Total exam DLP = 832 mGy-cm. This CT exam was performed using one or more of the following dose reduction techniques: Automated exposure control, adjustment of the mA and/or kV according to patient size, and/or use of iterative reconstruction technique. FINDINGS: HEMORRHAGE: No intracranial hemorrhage. BRAIN: No mass effect or edema. No atrophy or chronic microvascular ischemic changes. VENTRICLES: Unremarkable. No hydrocephalus. CALVARIUM: Unremarkable. PARANASAL SINUSES: Unremarkable as visualized. No significant inflammatory changes. MASTOID AIR CELLS: Unremarkable as visualized. No inflammatory changes. OTHER FINDINGS: None. IMPRESSION: No acute findings
[2018-05-03] MEDS: MethylPREDNISolone 40 mg Vial IVP SCH ×2 (11:52→21:33)
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
--- NOTE | 2018-05-03 12:37 | CT ---
Date of service: 05/03/2018 PROCEDURE: CT Cervical Spine without contrast HISTORY: etoh COMPARISON: None available. TECHNIQUE: Axial computed tomography images were obtained of the cervical spine without the use of intravenous contrast. Coronal and sagittal reformatted images were created and reviewed. Radiation dose: Total exam DLP = 632 mGy-cm. This CT exam was performed using one or more of the following dose reduction techniques: Automated exposure control, adjustment of the mA and/or kV according to patient size, and/or use of iterative reconstruction technique. FINDINGS: VERTEBRAE: No fracture. Normal alignment. No destructive bony lesion. DISCS/SPINAL CANAL/NEURAL FORAMINA: No significant central canal or neural foraminal stenosis. Discs heights are grossly preserved. PARASPINAL SOFT TISSUES: Unremarkable. OTHER FINDINGS: None. IMPRESSION: Unremarkable CT of the cervical spine.
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
--- NOTE | 2018-05-03 13:28 | US ---
HISTORY: Leg pain and swelling. Evaluate for DVT PHYSICIAN(S): Anand Holt MD. TECHNIQUE: Duplex sonography and color-flow Doppler with graded compression were used to evaluate the deep venous systems of both lower extremities. FINDINGS: The visualized deep venous systems of both lower extremities are sonographically normal and compressible. Normal wave forms and augmentation are seen. There is no sonographic evidence for deep venous thrombosis in the visualized segments of both lower extremities. IMPRESSION: No sonographic evidence for deep venous thrombosis in the visualized segments of both lower extremities.
[2018-05-03] MEDS: Albuterol-Ipratrop 3 mg / 0.5 (3 ml) UD IH SCH ×2 (13:48→19:55)
[2018-05-03] MEDS: Multivitamin Therapeutic Tab PO SCH (14:32)
[2018-05-03] MEDS: Folic Acid 1 MG, Thiamine 100 MG, Multivitamin (MVI) 10 ML, Potassium Chloride 20 MEQ i... IV SCH (14:32)
[2018-05-04] MEDS: Folic Acid 1 MG, Thiamine 100 MG, Multivitamin (MVI) 10 ML, Potassium Chloride 20 MEQ i... IV SCH (00:19)
[2018-05-04] MEDS: Albuterol-Ipratrop 3 mg / 0.5 (3 ml) UD IH SCH ×4 (01:21→20:02)
[2018-05-04 07:06] LABS: GRAN # 6.78 (1.4-6.5); GRAN % 85.4 % (50.0-68.0); HEMOGLOBIN 14.4 g/dL (14.0-18.0); LYMPH # 0.6 (1.2-3.4); LYMPH % 8.1 % (22.0-35.0); MEAN CELL VOLUME 97.2 fl (80.0-105.0); MEAN CORPUSCULAR HEMOGLOBIN 33.5 pg (25.0-35.0); MEAN CORPUSCULAR HGB CONC 34.4 g/dl (31.0-37.0); MEAN PLATELET VOLUME 10.3 fl (7.0-11.0); MONO # 0.5 (0.1-0.6); MONO % 6.5 % (1.0-6.0); RBC 4.3 10^6/uL (3.5-6.1); RED CELL DISTRIBUTION WIDTH 12.5 % (11.5-14.5); WHITE BLOOD COUNT 7.9 10^3/ul (4.5-11.0)
[2018-05-04 07:28] LABS: ALB/GLOB RATIO 1.2 (1.1-1.8); ALBUMIN 3.7 g/dL (3.0-4.8); ALT/SGPT 105 U/L (7-56); AST/SGOT 70 U/L (17-59); BLOOD UREA NITROGEN 12 mg/dL (7-21); CALCIUM 9.6 mg/dL (8.4-10.5); GFR NON-AFRICAN AMERICAN > 60
[2018-05-04] MEDS: MethylPREDNISolone 40 mg Vial IVP SCH ×2 (09:44→22:31)
[2018-05-04] MEDS: Sodium Chloride 0.9% 1,000 ML IV SCH ×2 (09:44→18:00)
[2018-05-04] MEDS: Multivitamin Therapeutic Tab PO SCH (09:45)
[2018-05-04] MEDS ORDERED: Azithromycin 250 MG in Sodium Chloride 0.9% 250 ML IVPB SCH (10:00)
--- NOTE | 2018-05-04 11:20 | CP.PCM.PN ---
<Chandler Suazo - Last Filed: 05/04/18 13:51> Subjective - Date & Time of Evaluation Date of Evaluation: 05/04/18 Time of Evaluation: 08:00 - Subjective Subjective: Internal Medicine Progress Note for Dr. Josh Suazo PGY1 57M seen and evaluated at bedside this morning. Last CIWA was 11. He is complaining of tremors this morning. Admits to nonspecific pain in his back and legs. He is tolerating his diet. Denies fever, chills, nausea, vomiting, diarrhea, chest pain, palpitations, shortness of breath, cough, or abdominal pain. Objective - Vital Signs/Intake and Output Vital Signs (last 24 hours): Temp Pulse Resp BP Pulse Ox 97.8 F 59 L 20 118/62 93 L 05/04/18 06:00 05/04/18 06:00 05/04/18 06:00 05/04/18 06:00 05/04/18 06:00 - Medications Medications: Current Medications Albuterol/Ipratropium (Duoneb 3 Mg/0.5 Mg (3 Ml) Ud) 3 ml IH [id number] LINDA Last Admin: 05/04/18 07:26 Dose: 3 ml Albuterol/Ipratropium (Duoneb 3 Mg/0.5 Mg (3 Ml) Ud) 3 ml IH Q2H PRN PRN Reason: Shortness of Breath Famotidine (Pepcid) 40 mg PO HS LINDA Last Admin: 05/03/18 21:36 Dose: 40 mg Folic Acid (Folic Acid) 1 mg PO DAILY LINDA Last Admin: 05/04/18 09:45 Dose: 1 mg Sodium Chloride (Sodium Chloride 0.9%) 1,000 mls @ 100 mls/hr IV .Q10H LINDA Last Admin: 05/04/18 09:44 Dose: 100 mls/hr Azithromycin 250 mg/ Sodium (Chloride) 250 mls @ 167 mls/hr IVPB DAILY LINDA PRN Reason: Protocol Last Admin: 05/04/18 10:19 Dose: 167 mls/hr Lorazepam (Ativan) 1 mg IVP Q6 LINDA PRN Reason: Protocol Last Admin: 05/04/18 05:50 Dose: 1 mg Lorazepam (Ativan) 1 mg IVP Q2H PRN; Protocol PRN Reason: Anxiety Last Admin: 05/04/18 09:44 Dose: 1 mg Methylprednisolone (Solu-Medrol) 30 mg IVP Q12 LINDA Last Admin: 05/04/18 09:44 Dose: 30 mg Multivitamins (Thera Tab) 1 tab PO DAILY LINDA Last Admin: 05/04/18 09:45 Dose: 1 tab Thiamine HCl (Vitamin B1 Tab) 100 mg PO DAILY LINDA Last Admin: 05/04/18 09:45 Dose: 100 mg - Labs Labs: PT 11.1 SECONDS (9.4-12.5) 05/03/18 04:55 INR 0.97 05/03/18 04:55 APTT 33.0 Seconds (25.1-36.5) 05/03/18 04:55 - Constitutional Appears: Well, No Acute Distress, Unkempt - Head Exam Head Exam: ATRAUMATIC, NORMAL INSPECTION, NORMOCEPHALIC - Eye Exam Eye Exam: EOMI Pupil Exam: PERRL - ENT Exam ENT Exam: Mucous Membranes Dry - Respiratory Exam Respiratory Exam: Prolonged Expiratory Phase, Wheezes - Cardiovascular Exam Cardiovascular Exam: REGULAR RHYTHM, +S1, +S2. absent: Murmur - GI/Abdominal Exam GI & Abdominal Exam: Soft, Normal Bowel Sounds. absent: Tenderness - Neurological Exam Neurological Exam: Alert, Awake, Oriented x3 Assessment and Plan - Assessment and Plan (Free Text) Assessment: 57M, PMH of Substance and alcohol abuse, chronic back pain, COPD, HTN, and PUD, presented to the ED with shortness of breath, chest pain and foot and leg pain admitted to rule out acute coronary syndrome and suspected COPD exacerbation. Plan: 1. Chest Pain, Shortness of Breath, Leg pain - likely secondary to COPD exacerbation vs. ACS r/o vs. musculoskeletal - EKG negative - Troponins negative x3 - CTA of the head/neck negative for PE - CXR negative for acute disease process - Repeat EKG: normal sinus rhythm at 80bpm - Lower extremity duplex negative for DVT - Duonebs Q6 LINDA, Q2 PRN - Solumedrol 3-mg IV Q12 - Continue Azithromycin 250mg Day 2 - Tylenol 650mg Q8 PRN for pain 2. Polysubstance abuse - UDS positive for opiates and cocaine - Alcohol screen 52 - [facility] protocol, today 11 - Aspiration precautions - Fall precuations - Ativan 1mg Q6, Q2 PRN - Continue NS@ 100cc/hr - Continue Folate/MV/Thiamine - Continue to monitor - Counseled patient and encouraged cessation of illicit drugs and alcohol - PT evaluation pending - Psychiatry consulted, recommendations appreciated 3. Hx of Depression - Psychiatry consulted for additional counseling secondary to concomitant substance abuse GI: Pepcid DVT: SCDs Diet: HHD Dispo: Patient status changed to Inpatient. Will await psychiatry recommendations. <Macario Moreno - Last Filed: 05/04/18 16:05> Objective - Vital Signs/Intake and Output Vital Signs (last 24 hours): Temp Pulse Resp BP Pulse Ox 99.2 F 67 18 122/75 93 L 05/04/18 11:41 05/04/18 11:41 05/04/18 11:41 05/04/18 11:41 05/04/18 06:00 - Medications Medications: Current Medications Acetaminophen (Tylenol 325mg Tab) 650 mg PO Q8H PRN PRN Reason: Pain, moderate (4-7) Albuterol/Ipratropium (Duoneb 3 Mg/0.5 Mg (3 Ml) Ud) 3 ml IH [id number] LINDA Last Admin: 05/04/18 13:07 Dose: 3 ml Albuterol/Ipratropium (Duoneb 3 Mg/0.5 Mg (3 Ml) Ud) 3 ml IH Q2H PRN PRN Reason: Shortness of Breath Famotidine (Pepcid) 40 mg PO HS LINDA Last Admin: 05/03/18 21:36 Dose: 40 mg Folic Acid (Folic Acid) 1 mg PO DAILY LINDA Last Admin: 05/04/18 09:45 Dose: 1 mg Sodium Chloride (Sodium Chloride 0.9%) 1,000 mls @ 100 mls/hr IV .Q10H LINDA Last Admin: 05/04/18 09:44 Dose: 100 mls/hr Azithromycin 250 mg/ Sodium (Chloride) 250 mls @ 167 mls/hr IVPB DAILY LINDA PRN Reason: Protocol Last Admin: 05/04/18 10:19 Dose: 167 mls/hr Lorazepam (Ativan) 1 mg IVP Q6 LINDA PRN Reason: Protocol Last Admin: 05/04/18 11:56 Dose: 1 mg Lorazepam (Ativan) 1 mg IVP Q2H PRN; Protocol PRN Reason: Anxiety Last Admin: 05/04/18 14:56 Dose: 1 mg Methylprednisolone (Solu-Medrol) 30 mg IVP Q12 [facility] Last Admin: 05/04/18 09:44 Dose: 30 mg Multivitamins (Thera Tab) 1 tab PO DAILY [facility] Last Admin: 05/04/18 09:45 Dose: 1 tab Nicotine (Nicoderm Cq) 1 patch TD DAILY [facility] Last Admin: 05/04/18 14:54 Dose: Not Given Oxycodone/Acetaminophen (Percocet 5/325 Mg Tab) 1 tab PO Q6H PRN PRN Reason: Pain, severe (8-10) Stop: 05/07/18 14:20 Last Admin: 05/04/18 14:55 Dose: 1 tab Thiamine HCl (Vitamin B1 Tab) 100 mg PO DAILY [facility] Last Admin: 05/04/18 09:45 Dose: 100 mg - Labs Labs: PT 11.1 SECONDS (9.4-12.5) 05/03/18 04:55 INR 0.97 05/03/18 04:55 APTT 33.0 Seconds (25.1-36.5) 05/03/18 04:55 Attending/Attestation - Attestation I have personally seen and examined this patient.: Yes I have fully participated in the care of the patient.: Yes I have reviewed all pertinent clinical information, including history, physical exam and plan: Yes Notes (Text): 05/04/18 15:20 attending note; Patient seen and examined with resident. patient is more alert and awake. Complaining of leg pain and back pain which is chronic. Requesting pain medication. Patient is interested in getting opiates prescription. Currently he is not getting opiates from any physician. Patient is a 57-year-old male well-known to our service with a past medical history of chronic back pain, poly-substance abuse,opiate abuse, chronic alcohol abuse was admitted for generalized pain and alcohol intoxication. Patient is alert and awake. Not in any acute distress. CT angios negative for PE. Venous Doppler is negative for DVT. patient is complaining of tremors. Monitored in telemetry closely. continue CIWA protocol. chest pain; resolved. EKG is normal.cardiac enzymes negative. cardiology evaluation appreciated. Head CT, cervical spine CT is negative. urine drug screen is positive for opiates and cocaine. elevated LFTs; secondary to chronic alcohol abuse. Monitor closely. anxiety depression; psychiatric evaluation appreciated. Patient will be referred to outpatient psychotherapy at [facility]. opiate seeking behavior; patient is requesting pain medication for chronic back pain and leg pain. Patient will be referred to pain management as outpatient. Prognosis is poor secondary to continuous opiates abuse, continuous alcohol abuse and noncompliance with follow-up. Upon discharge the patient will follow-up with PMD Dr. shannon. 05/04/18 16:03
[2018-05-04] MEDS: Oxycodone/Acetaminophen 5/325 mg Tab PO PRN ×2 (14:55→20:21)
--- NOTE | 2018-05-04 14:55 | PN ---
Copied To: Chan Alicea MD Attending MD: Chan Alicea MD DATE: 05/04/2018 SUBJECTIVE: The patient feels much better compared to yesterday. He denies any chest pain. PHYSICAL EXAMINATION: VITAL SIGNS: Blood pressure 118/62, heart rate 59, temperature 97.8 respirations 20. HEENT: Normocephalic. CHEST: Clear. HEART: S1 and S2 regular. EXTREMITIES: No edema. LABORATORY DATA: Today his hemoglobin and hematocrit 14.4 and 41.8. White count and platelet count are within normal limit. Today SMA-7 is within normal limit except for glucose of 138 and creatinine of 0.4. Three sets of troponins are negative. Venous Doppler on the lower extremity, no evidence of DVT. The repeat 12-lead EKG today revealed normal sinus rhythm at the rate of 70. ASSESSMENT: 1. Status post cocaine, opiate and alcohol abuse. 2. Uncontrolled diabetes mellitus. 3. Improved hypokalemia. CONDITIONS: Continue current folic acid 1 mg once a day, Solu-Medrol mg intravenously every 12 hours, thiamine 100 mg once a day, multivitamin one tablet once a day. Chan Alicea MD
--- NOTE | 2018-05-04 23:29 | CARD ---
APPROVED REPORT Date of service: 05/04/2018 EKG Measurement Heart [id number] <Conclusion> Normal sinus rhythm Normal ECG
[2018-05-05] MEDS: Albuterol-Ipratrop 3 mg / 0.5 (3 ml) UD IH SCH (01:09)
--- NOTE | 2018-05-05 01:18 | CP.PCM.PN ---
Subjective - Date & Time of Evaluation Date of Evaluation: 05/05/18 Time of Evaluation: 01:13 - Subjective Subjective: Pawan Arenas, PGY-1 Progress Note for Floor Call I received multiple calls with regards to patient's alcohol withdrawal symptoms , including tremors and continued agitation. After discussing with senior resident Dr. Queen, patient was started on course of Librium 25 q8h for his ongoing withdrawal symptoms despite elevated LFTs. Therapy was chosen as patient was uncontrolled on 6 mg of Ativan over a 2 hour period. Continue to monitor CMP closely. Pawan Arenas, PGY-1 Objective - Vital Signs/Intake and Output Vital Signs (last 24 hours): Temp Pulse Resp BP Pulse Ox 98.7 F 85 18 148/85 95 05/05/18 00:01 05/05/18 00:01 05/05/18 00:01 05/05/18 00:01 05/05/18 00:01 Intake and Output: 05/04/18 05/05/18 18:59 06:59 Intake Total 1250 1560 Output Total 1850 Balance 1250 -290 - Medications Medications: Current Medications Acetaminophen (Tylenol 325mg Tab) 650 mg PO Q8H PRN PRN Reason: Pain, moderate (4-7) Albuterol/Ipratropium (Duoneb 3 Mg/0.5 Mg (3 Ml) Ud) 3 ml IH [id number] [facility] Last Admin: 05/05/18 01:09 Dose: Not Given Albuterol/Ipratropium (Duoneb 3 Mg/0.5 Mg (3 Ml) Ud) 3 ml IH Q2H PRN PRN Reason: Shortness of Breath Famotidine (Pepcid) 40 mg PO HS [facility] Last Admin: 05/04/18 22:31 Dose: 40 mg Folic Acid (Folic Acid) 1 mg PO DAILY LINDA Last Admin: 05/04/18 09:45 Dose: 1 mg Sodium Chloride (Sodium Chloride 0.9%) 1,000 mls @ 100 mls/hr IV .Q10H [facility] Last Admin: 05/04/18 18:00 Dose: Not Given Azithromycin 250 mg/ Sodium (Chloride) 250 mls @ 167 mls/hr IVPB DAILY LINDA PRN Reason: Protocol Last Admin: 05/04/18 10:19 Dose: 167 mls/hr Lorazepam (Ativan) 1 mg IVP Q6 LINDA PRN Reason: Protocol Last Admin: 05/05/18 00:19 Dose: 1 mg Lorazepam (Ativan) 1 mg IVP Q2H PRN; Protocol PRN Reason: Anxiety Last Admin: 05/04/18 22:32 Dose: 1 mg Lorazepam (Ativan) 1 mg IVP Q20M PRN; Protocol PRN Reason: Symptoms of alcohol withdrawl Methylprednisolone (Solu-Medrol) 30 mg IVP Q12 [facility] Last Admin: 05/04/18 22:31 Dose: 30 mg Multivitamins (Thera Tab) 1 tab PO DAILY [facility] Last Admin: 05/04/18 09:45 Dose: 1 tab Nicotine (Nicoderm Cq) 1 patch TD DAILY [facility] Last Admin: 05/04/18 14:54 Dose: Not Given Oxycodone/Acetaminophen (Percocet 5/325 Mg Tab) 1 tab PO Q6H PRN PRN Reason: Pain, severe (8-10) Stop: 05/07/18 14:20 Last Admin: 05/04/18 20:21 Dose: 1 tab Thiamine HCl (Vitamin B1 Tab) 100 mg PO DAILY [facility] Last Admin: 05/04/18 09:45 Dose: 100 mg - Labs Labs: PT 11.1 SECONDS (9.4-12.5) 05/03/18 04:55 INR 0.97 05/03/18 04:55 APTT 33.0 Seconds (25.1-36.5) 05/03/18 04:55
[2018-05-05] MEDS: Oxycodone/Acetaminophen 5/325 mg Tab PO PRN (01:28)
[2018-05-05] MEDS: Sodium Chloride 0.9% 1,000 ML IV SCH (04:24)
--- NOTE | 2018-05-05 05:48 | CON ---
Copied To: Liz Lucas MD Attending MD: Liz Lucas MD DATE: 05/04/2018 HISTORY OF PRESENT ILLNESS: The patient is a 57-year-old male with reported history of polysubstance abuse and dependence, alcohol use disorder in addition to the pain medication. The patient was admitted to the medical site for evaluation of chest pain. The patient also has multiple medical problems including COPD, hypertension. Psych consult was called for evaluation of possible depression. The patient was seen and examined today, presented to be alert. Presently the patient says he feels comfortable, bus has upper extremity tremor. The patient denied that he feels hopeless or helpless. Mood reported to be depressed. Majority of his problems is related to medical issues, chronic pain and substance abuse. The patient denied hearing voices, denied seeing things. No psychotic symptoms were elicited. VITAL SIGNS: Vital signs seems to be stable. Temperature 99.2, pulse is 67, blood pressure 122/75, respirations 18, oxygen saturation is 93. LABORATORY DATA: Reviewed. Hemoglobin and hematocrit are 14.4 and 41.8 respectively. Urine drug screen was positive for opioids as well as cocaine. The patient alcohol level at the time of admission was 52. MEDICATIONS: Reviewed. The patient is on Tylenol, DuoNeb, azithromycin, Pepcid, folic acid, Ativan 1 mg IV push every 6 hours schedule, and 2 hours as needed, Solu-Medrol, multivitamins, Nicoderm, Percocet, thiamine. MENTAL STATUS EXAMINATION: The patient presented to be alert and oriented, pleasant, cooperative. Behavior was socially acceptable. Intermittent eye contact. Speech was underproductive. Mood described as depressed. Affect was constricted, but reactive, mood congruent. Thought process seems to be coherent and goal directed. Thought content, the patient denied any thoughts of harming himself or others. The patient denied any psychotic symptoms and does not present to be psychotic. Insight and judgment to substance abuse is limited. IMPRESSION: Most likely the patient has mood disorder which is related to chronic substance abuse and medical issues, chronic substance abuse and dependence, alcohol use disorder. The patient also complained of chronic pain. PLAN: Continue benzodiazepines in order to avoid withdrawal symptoms, multivitamins, thiamine and folic acid. The patient might benefit from inpatient rehab, but the patient declined that offer. The patient did not want to follow with my clinic. The patient was followed up by psychiatrist at [facility], was recommended to keep his appointments. The patient was educated about pain management. Information about local pain management was provided. The patient was appreciative. The patient adamantly denied any thoughts of killing himself or others. This bond underwriter will sign off. Should you have any questions, give me a call back. The patient is not in any imminent danger to self or others. Thank you very much for letting me participate in the care of your patient. Should you have any questions, give me a call back. Liz Lucas MD
[2018-05-05 06:51] VITALS: BP 134/87; PULSE 60; RESP 19; TEMP 98.1; O2SAT 94
--- NOTE | 2018-05-05 15:33 | CP.PCM.DIS ---
<Tyrell Belcher - Last Filed: 05/05/18 15:28> Provider - Provider Date of Admission: 05/04/18 10:18 Attending physician: Macario Moreno MD Consults: Cardiology Psych Time Spent in preparation of Discharge (in minutes): 70 Hospital Course - Lab Results Lab Results: Most Recent Lab Values WBC 7.9 10^3/ul (4.5-11.0) 05/04/18 06:30 RBC 4.30 10^6/uL (3.5-6.1) 05/04/18 06:30 Hgb 14.4 g/dL (14.0-18.0) 05/04/18 06:30 Hct 41.8 % (42.0-52.0) L 05/04/18 06:30 MCV 97.2 fl (80.0-105.0) 05/04/18 06:30 MCH 33.5 pg (25.0-35.0) 05/04/18 06:30 MCHC 34.4 g/dl (31.0-37.0) 05/04/18 06:30 RDW 12.5 % (11.5-14.5) 05/04/18 06:30 Plt Count 170 10^3/uL (120.0-450.0) 05/04/18 06:30 MPV 10.3 fl (7.0-11.0) 05/04/18 06:30 Gran % 85.4 % (50.0-68.0) H 05/04/18 06:30 Lymph % (Auto) 8.1 % (22.0-35.0) L 05/04/18 06:30 [place] % (Auto) 6.5 % (1.0-6.0) H 05/04/18 06:30 Eos % (Auto) 0.0 % (1.5-5.0) L 05/04/18 06:30 Baso % (Auto) 0.0 % (0.0-3.0) 05/04/18 06:30 Gran # 6.78 (1.4-6.5) H 05/04/18 06:30 Lymph # (Auto) 0.6 (1.2-3.4) L 05/04/18 06:30 [place] # (Auto) 0.5 (0.1-0.6) 05/04/18 06:30 Eos # (Auto) 0.0 (0.0-0.7) 05/04/18 06:30 Baso # (Auto) 0.00 K/mm3 (0.0-2.0) 05/04/18 06:30 PT 11.1 SECONDS (9.4-12.5) 05/03/18 04:55 INR 0.97 05/03/18 04:55 APTT 33.0 Seconds (25.1-36.5) 05/03/18 04:55 D-Dimer, Quantitative 359 ng/mlDDU (0-243) H 05/03/18 04:55 Sodium 134 mmol/L (132-148) 05/04/18 06:30 Potassium 4.3 mmol/L (3.6-5.0) 05/04/18 06:30 Chloride 101 mmol/L (98-107) 05/04/18 06:30 Carbon Dioxide 23 mmol/L (21-33) 05/04/18 06:30 Anion Gap 15 (10-20) 05/04/18 06:30 BUN 12 mg/dL (7-21) 05/04/18 06:30 Creatinine 0.4 mg/dl (0.8-1.5) L 05/04/18 06:30 Est GFR ( Amer) > 60 05/04/18 06:30 Est GFR (Non-Af Amer) > 60 05/04/18 06:30 Random Glucose 238 mg/dL (70-110) H 05/04/18 06:30 Calcium 9.6 mg/dL (8.4-10.5) 05/04/18 06:30 Phosphorus 2.7 mg/dL (2.5-4.5) 05/04/18 06:30 Magnesium 1.7 mg/dL (1.7-2.2) 05/04/18 06:30 Total Bilirubin 0.6 mg/dL (0.2-1.3) 05/04/18 06:30 AST 70 U/L (17-59) H D 05/04/18 06:30 ALT 105 U/L (7-56) H 05/04/18 06:30 Alkaline Phosphatase 59 U/L (38-126) 05/04/18 06:30 Troponin I < 0.01 ng/mL 05/03/18 21:23 Total Protein 6.8 g/dL (5.8-8.3) 05/04/18 06:30 Albumin 3.7 g/dL (3.0-4.8) 05/04/18 06:30 Globulin 3.1 gm/dL 05/04/18 06:30 Albumin/Globulin Ratio 1.2 (1.1-1.8) 05/04/18 06:30 Triglycerides 110 mg/dL (35-160) 05/03/18 05:00 Cholesterol 173 mg/dL (130-200) 05/03/18 05:00 LDL Cholesterol Direct 56 mg/dL (0-129) 05/03/18 05:00 HDL Cholesterol 86 mg/dL (29-60) H 05/03/18 05:00 Lipase 87 U/L (23-300) 05/03/18 04:55 Urine Opiates Screen Positive (NEGATIVE) H 05/03/18 08:30 Urine Methadone Screen Negative (NEGATIVE) 05/03/18 08:30 Ur Barbiturates Screen Negative (NEGATIVE) 05/03/18 08:30 Ur Phencyclidine Scrn Negative (NEGATIVE) 05/03/18 08:30 Ur Amphetamines Screen Negative (NEGATIVE) 05/03/18 08:30 U Benzodiazepines Scrn Negative (NEGATIVE) 05/03/18 08:30 U Oth Cocaine Metabols Positive (NEGATIVE) H 05/03/18 08:30 U Cannabinoids Screen Negative (NEGATIVE) 05/03/18 08:30 Alcohol, Quantitative 52 mg/dL (0-10) H 05/03/18 04:55 - Hospital Course Hospital Course: Upon Admission: 57M with PMH of COPD, chronic back pain, poly-substance abuse, chronic alcohol abuse, HTN, and PUD, presented to the ED on 05/04/18 with complains of chest pain, foot/leg pain, and shortness of breath. Patient admitted to consuming alcohol that night and wasintoxicated at the time of presentation. 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 Patient was audibly wheezing on inhalation/ exhalation at bedside but denies any chest pain or shortness of breath while in the ED. Chest x-ray was ordered revealing no active pulmonary disease. Chest CT was ordered reveling bibasilar, nonspecific infiltrates and consolidation with peribronchial cuffing/thickening consistent with atelectasis or pneumonia. No evidence of PE was present. Head and Cervical Spine CT were negative. EKG ordered revealing NSR, Troponins negative X2, and cardio was consulted. CIWA protocol was initiated. Hospital Course: Given condition and CT findings, patient was admitted to [facility] and started on rocephin, azithromycin, thiamine, KCl, duonebs, and solumedrol. Ativan was administered when necessary. Given reported leg pain, LE duplex was ordered to rule out DVT and came back negative. Patient was evaluated the next day reporting complaints of tremors and nonspecific pain in the back and legs. Repeat EKG reveled NSR. Psychiatry was consulted due to a history of depression. Patient decided upon following up with his psychiatrist at [facility]. Patient was started on a course of Librium 25 Q8 early (05/05) morning due to ongoing withdrawal symptoms despite high LFTs. Therapy was chosen due to condition being uncontrolled on 6mg of Ativan. Patient remained agitated and in distress. Clinton Ba was called as he attempted to pull out his IV lines and leave the premises. Upon Discharge: Patient was advised to complete the treatment course. Patient refused to continue treatment, understood risks or leaving before completion of treatment, and signed off against medical advice Discharge Exam - Head Exam Head Exam: ATRAUMATIC, NORMAL INSPECTION, NORMOCEPHALIC - Additional Findings Additional findings: Physical Exam not completed as pt signed out AMA before rounds Discharge Plan - Follow Up Plan Condition: GOOD Disposition: AGAINST MEDICAL ADVICE Instructions: Chest Pain (DC), Back Pain (GEN) Referrals: Wil Wang MD [Staff Provider] - Liz Lucas MD [Staff Provider] - <Macario Moreno - Last Filed: 05/05/18 16:35> Provider - Provider Date of Admission: 05/04/18 10:18 Attending physician: Macario Moreno MD Hospital Course - Lab Results Lab Results: Most Recent Lab Values WBC 7.9 10^3/ul (4.5-11.0) 05/04/18 06:30 RBC 4.30 10^6/uL (3.5-6.1) 05/04/18 06:30 Hgb 14.4 g/dL (14.0-18.0) 05/04/18 06:30 Hct 41.8 % (42.0-52.0) L 05/04/18 06:30 MCV 97.2 fl (80.0-105.0) 05/04/18 06:30 MCH 33.5 pg (25.0-35.0) 05/04/18 06:30 MCHC 34.4 g/dl (31.0-37.0) 05/04/18 06:30 RDW 12.5 % (11.5-14.5) 05/04/18 06:30 Plt Count 170 10^3/uL (120.0-450.0) 05/04/18 06:30 MPV 10.3 fl (7.0-11.0) 05/04/18 06:30 Gran % 85.4 % (50.0-68.0) H 05/04/18 06:30 Lymph % (Auto) 8.1 % (22.0-35.0) L 05/04/18 06:30 [place] % (Auto) 6.5 % (1.0-6.0) H 05/04/18 06:30 Eos % (Auto) 0.0 % (1.5-5.0) L 05/04/18 06:30 Baso % (Auto) 0.0 % (0.0-3.0) 05/04/18 06:30 Gran # 6.78 (1.4-6.5) H 05/04/18 06:30 Lymph # (Auto) 0.6 (1.2-3.4) L 05/04/18 06:30 [place] # (Auto) 0.5 (0.1-0.6) 05/04/18 06:30 Eos # (Auto) 0.0 (0.0-0.7) 05/04/18 06:30 Baso # (Auto) 0.00 K/mm3 (0.0-2.0) 05/04/18 06:30 PT 11.1 SECONDS (9.4-12.5) 05/03/18 04:55 INR 0.97 05/03/18 04:55 APTT 33.0 Seconds (25.1-36.5) 05/03/18 04:55 D-Dimer, Quantitative 359 ng/mlDDU (0-243) H 05/03/18 04:55 Sodium 134 mmol/L (132-148) 05/04/18 06:30 Potassium 4.3 mmol/L (3.6-5.0) 05/04/18 06:30 Chloride 101 mmol/L (98-107) 05/04/18 06:30 Carbon Dioxide 23 mmol/L (21-33) 05/04/18 06:30 Anion Gap 15 (10-20) 05/04/18 06:30 BUN 12 mg/dL (7-21) 05/04/18 06:30 Creatinine 0.4 mg/dl (0.8-1.5) L 05/04/18 06:30 Est GFR ( Amer) > 60 05/04/18 06:30 Est GFR (Non-Af Amer) > 60 05/04/18 06:30 Random Glucose 238 mg/dL (70-110) H 05/04/18 06:30 Calcium 9.6 mg/dL (8.4-10.5) 05/04/18 06:30 Phosphorus 2.7 mg/dL (2.5-4.5) 05/04/18 06:30 Magnesium 1.7 mg/dL (1.7-2.2) 05/04/18 06:30 Total Bilirubin 0.6 mg/dL (0.2-1.3) 05/04/18 06:30 AST 70 U/L (17-59) H D 05/04/18 06:30 ALT 105 U/L (7-56) H 05/04/18 06:30 Alkaline Phosphatase 59 U/L (38-126) 05/04/18 06:30 Troponin I < 0.01 ng/mL 05/03/18 21:23 Total Protein 6.8 g/dL (5.8-8.3) 05/04/18 06:30 Albumin 3.7 g/dL (3.0-4.8) 05/04/18 06:30 Globulin 3.1 gm/dL 05/04/18 06:30 Albumin/Globulin Ratio 1.2 (1.1-1.8) 05/04/18 06:30 Triglycerides 110 mg/dL (35-160) 05/03/18 05:00 Cholesterol 173 mg/dL (130-200) 05/03/18 05:00 LDL Cholesterol Direct 56 mg/dL (0-129) 05/03/18 05:00 HDL Cholesterol 86 mg/dL (29-60) H 05/03/18 05:00 Lipase 87 U/L (23-300) 05/03/18 04:55 Urine Opiates Screen Positive (NEGATIVE) H 05/03/18 08:30 Urine Methadone Screen Negative (NEGATIVE) 05/03/18 08:30 Ur Barbiturates Screen Negative (NEGATIVE) 05/03/18 08:30 Ur Phencyclidine Scrn Negative (NEGATIVE) 05/03/18 08:30 Ur Amphetamines Screen Negative (NEGATIVE) 05/03/18 08:30 U Benzodiazepines Scrn Negative (NEGATIVE) 05/03/18 08:30 U Oth Cocaine Metabols Positive (NEGATIVE) H 05/03/18 08:30 U Cannabinoids Screen Negative (NEGATIVE) 05/03/18 08:30 Alcohol, Quantitative 52 mg/dL (0-10) H 05/03/18 04:55 Attending/Attestation - Attestation I have personally seen and examined this patient.: Yes I have fully participated in the care of the patient.: Yes I have reviewed all pertinent clinical information, including history, physical exam and plan: Yes Notes (Text): 05/05/18 16:33 attending note; patient signed AGAINST MEDICAL ADVICE. no physical examination was done. I saw the patient walking out of the elevator with security guards. Patient is a 57-year-old male well-known to our service with a past medical history of chronic back pain, poly-substance abuse,opiate abuse, chronic alcohol abuse was admitted for generalized pain and alcohol intoxication. anxiety depression; patient was evaluated by psychiatrist yesterday. Advised to follow-up with [facility] outpatient clinic. Alcohol abuse; completes alcohol cessation is advised. Patient is not interested in alcohol or drug treatment program. Only interested in getting opiate prescription as outpatient. opiate seeking behavior; patient is requesting pain medication for chronic back pain and leg pain. Patient will be referred to pain management as outpatient. Prognosis is poor secondary to continuous opiates abuse, continuous alcohol abuse and noncompliance with follow-up. Patient signed AGAINST MEDICAL ADVICE. Upon discharge the patient will follow-up with PMD Dr. shannon.
== END 2018-05-05 07:17 | disposition left against medical advice (07) | DRG 749 ==
LOC: ED 03:55 → ERH 10:31 → 2RNO 13:40 → OBSVTOIN 05-04 10:18
PROVIDERS: ADMIT Internal Medicine; ATTEND Internal Medicine
DX: F10.239 Alcohol dependence with withdrawal, unspecified (principal); E11.65 Type 2 diabetes mellitus with hyperglycemia; E11.22 Type 2 diabetes mellitus with diabetic chronic kidney disease; E87.6 Hypokalemia; N18.9 Chronic kidney disease, unspecified; J44.1 Chronic obstructive pulmonary disease with (acute) exacerbation; F14.10 Cocaine abuse, uncomplicated; F17.200 Nicotine dependence, unspecified, uncomplicated; F39 Unspecified mood [affective] disorder; F41.8 Other specified anxiety disorders; G89.29 Other chronic pain; I12.9 Hypertensive chronic kidney disease with stage 1 through stage 4 chronic kidney disease, or unspecified chronic kidney disease; Z76.5 Malingerer [conscious simulation]; Z86.73 Personal history of transient ischemic attack (TIA), and cerebral infarction without residual deficits; Z87.11 Personal history of peptic ulcer disease; Z87.442 Personal history of urinary calculi; Z91.19 Patient's noncompliance with other medical treatment and regimen; Y90.2 Blood alcohol level of 40-59 mg/100 ml

== ENCOUNTER 2018-07-23 12:24 | Emergency (ER) | payer MEDICAID ==
[2018-07-23 12:25] VITALS: BMI 29.0
[2018-07-23] MEDS ORDERED: Sodium Chloride 0.9% 1,000 ML IV STA (12:55)
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
[2018-07-23 13:41] LABS: VENOUS BLOOD GAS BASE EXCESS 3.2 mmol/L (0.0-2.0); VENOUS BLOOD GAS PO2 115 mm/Hg (30-55); VENOUS BLOOD PH 7.36 (7.32-7.43)
[2018-07-23 13:50] LABS: BASO # 0.01 K/mm3 (0.0-2.0); BASO % 0.2 % (0.0-3.0); EOS % 0.8 % (1.5-5.0); GRAN # 3.55 (1.4-6.5); GRAN % 71.4 % (50.0-68.0); HEMOGLOBIN 14.7 g/dL (14.0-18.0); LYMPH # 0.7 (1.2-3.4); LYMPH % 14.1 % (22.0-35.0); MEAN CELL VOLUME 97.3 fl (80.0-105.0); MEAN CORPUSCULAR HEMOGLOBIN 33.1 pg (25.0-35.0); MEAN PLATELET VOLUME 8.9 fl (7.0-11.0); MONO # 0.7 (0.1-0.6); MONO % 13.5 % (1.0-6.0); RBC 4.44 10^6/uL (3.5-6.1); RED CELL DISTRIBUTION WIDTH 12.7 % (11.5-14.5)
--- NOTE | 2018-07-23 13:50 | RAD ---
Date of service: 07/23/2018 HISTORY: shortness of breath COMPARISON: 05/03/2018 FINDINGS: LUNGS: The lungs are well inflated and clear. PLEURA: No pleural effusions or pneumothorax. CARDIOVASCULAR: The heart is normal in size. No aortic atherosclerotic calcification present. OSSEOUS STRUCTURES: Within normal limits for the patient's age. VISUALIZED UPPER ABDOMEN: Normal. OTHER FINDINGS: None. IMPRESSION: No active pulmonary disease.
[2018-07-23 13:51] LABS: ALB/GLOB RATIO 1.1 (1.1-1.8); ALBUMIN 4.1 g/dL (3.0-4.8); ALT/SGPT 95 U/L (7-56); AST/SGOT 91 U/L (17-59); BLOOD UREA NITROGEN 9 mg/dL (7-21); CALCIUM 9.1 mg/dL (8.4-10.5); GFR NON-AFRICAN AMERICAN > 60
[2018-07-23 14:02] LABS: TROPONIN I < 0.01 ng/mL
[2018-07-23 14:11] VITALS: RESP 16
[2018-07-23 15:14] VITALS: BP 149/76; PULSE 61; O2SAT 97
[2018-07-23 16:02] LABS: BARBITURATES, UR NEGATIVE (NEGATIVE); BENZODIAZEPINES, UR NEGATIVE (NEGATIVE); OPIATES, UR POSITIVE (NEGATIVE); PHENCYCLIDINE, UR NEGATIVE (NEGATIVE)
--- NOTE | 2018-07-24 10:40 | CARD ---
APPROVED REPORT Date of service: 07/23/2018 EKG Measurement Heart [id number] <Conclusion> Marked sinus bradycardia Abnormal ECG
== END 2018-07-23 15:39 | disposition home or self-care (01) ==
LOC: ED 12:24
DX: K29.70 Gastritis, unspecified, without bleeding (principal); F19.10 Other psychoactive substance abuse, uncomplicated; I10 Essential (primary) hypertension; F41.9 Anxiety disorder, unspecified; Z86.73 Personal history of transient ischemic attack (TIA), and cerebral infarction without residual deficits; F17.210 Nicotine dependence, cigarettes, uncomplicated
CPT/HCPCS: 71045; 80053; 80324; 80345; 80346; 80349; 80353; 80358; 80361; 82550; 82803; 83615; 83690; 83735; 83992; 84484; 85025; 93005; 96361; 96374; 96375; 99284; J2405; J7030

== ENCOUNTER 2019-01-12 21:52 | Emergency (ER) | payer MEDICAID ==
[2019-01-12 21:53] VITALS: BMI 29.0
[2019-01-12 22:18] VITALS: TEMP 97.9
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
[2019-01-12 22:40] LABS: BASO # 0.03 K/mm3 (0.0-2.0); BASO % 0.3 % (0.0-3.0); EOS # 0.2 (0.0-0.7); EOS % 2.1 % (1.5-5.0); HEMOGLOBIN 14.9 g/dL (14.0-18.0); LYMPH # 3.1 (1.2-3.4); LYMPH % 34.1 % (22.0-35.0); MEAN CELL VOLUME 99.1 fl (80.0-105.0); MEAN CORPUSCULAR HEMOGLOBIN 33.2 pg (25.0-35.0); MEAN CORPUSCULAR HGB CONC 33.5 g/dl (31.0-37.0); MEAN PLATELET VOLUME 9.2 fl (7.0-11.0); MONO # 1.1 (0.1-0.6); MONO % 11.4 % (1.0-6.0); RBC 4.49 10^6/uL (3.5-6.1); RED CELL DISTRIBUTION WIDTH 12.9 % (11.5-14.5); WHITE BLOOD COUNT 9.2 10^3/uL (4.5-11.0)
[2019-01-12 22:51] LABS: ALB/GLOB RATIO 1.1 (1.1-1.8); ALBUMIN 4.3 g/dL (3.0-4.8); ALT/SGPT 105 U/L (7-56); AST/SGOT 108 U/L (17-59); BLOOD UREA NITROGEN 23 mg/dL (7-21); CALCIUM 9.5 mg/dL (8.4-10.5); GFR NON-AFRICAN AMERICAN > 60
[2019-01-13 00:06] LABS: PH,URINE 5.5 (4.7-8.0); URINE BILIRUBIN NEGATIVE (NEGATIVE); URINE BLOOD NEGATIVE (NEGATIVE); URINE GLUCOSE (UA) NEGATIVE (NEGATIVE); URINE LEUKOCYTE ESTERASE NEGATIVE Leu/uL (NEGATIVE); URINE PROTEIN TRACE mg/dL (<30 mg/dL); URINE UROBILINOGEN 0.2 E.U./dL (<1 E.U./dL)
[2019-01-13 00:10] LABS: URINE APPEARANCE SL CLOUDY (CLEAR); URINE COLOR YELLOW (YELLOW)
[2019-01-13] MEDS: Lidocaine 5% Patch TD STA ×2 (00:22→00:51)
[2019-01-13 00:24] LABS: URINE RBC 0 - 2 /hpf (0-2)
[2019-01-13 00:25] LABS: URINE AMORPHOUS SEDIMENT FEW /hpf; URINE BACTERIA FEW /hpf
[2019-01-13 00:34] LABS: BARBITURATES, UR NEGATIVE (NEGATIVE)
[2019-01-13 00:57] LABS: BENZODIAZEPINES, UR NEGATIVE (NEGATIVE); OPIATES, UR POSITIVE (NEGATIVE); PHENCYCLIDINE, UR NEGATIVE (NEGATIVE)
[2019-01-13 01:23] VITALS: BP 162/78; PULSE 88; O2SAT 100
[2019-01-13 01:24] VITALS: RESP 19
--- NOTE | 2019-01-13 10:15 | CT ---
PROCEDURE: CT Abdomen and Pelvis without Oral or IV contrast. HISTORY: R low back pain COMPARISON: CT abdomen and pelvis with contrast performed 09/15/16 TECHNIQUE: Contiguous axial images of the abdomen and pelvis. No oral or IV contrast administered. Coronal and Sagittal reformats generated and reviewed. Radiation dose: Total exam DLP = 820.4 mGy-cm. This CT exam was performed using one or more of the following dose reduction techniques: Automated exposure control, adjustment of the mA and/or kV according to patient size, and/or use of iterative reconstruction technique. FINDINGS: Examination limited by respiratory/motion artifact. There is limited evaluation of the solid organs without the administration of IV contrast. LOWER THORAX: No visible consolidation, pleural effusion, or pneumothorax. LIVER: Unremarkable unenhanced appearance. GALLBLADDER AND BILE DUCTS: Unremarkable unenhanced appearance. PANCREAS: Unremarkable unenhanced appearance. SPLEEN: Unremarkable unenhanced appearance. ADRENALS: Unremarkable unenhanced appearance. KIDNEYS AND URETERS: No hydronephrosis or obstructing renal calculus. BLADDER: The urinary bladder appears unremarkable. REPRODUCTIVE: The prostate gland measures approximately 3.3 x 4.7 cm APPENDIX: No secondary signs of acute appendicitis. BOWEL: The stomach is nondistended. Lack of oral contrast limits evaluation for bowel pathology. The bowel loops appear within normal limits of caliber without evidence of intestinal obstruction. Moderate constipation. PERITONEUM: No significant free fluid. No definite free air. LYMPH NODES: No bulky lymphadenopathy identified. VASCULATURE: Atherosclerotic calcifications of the aorta. No aortic aneurysm. BONES: Osseous demineralization. Degenerative changes. Chronic L2 compression fracture deformity. OTHER FINDINGS: None. IMPRESSION: Moderate constipation. Chronic L2 compression fracture deformity. Preliminary impression was provided by [employer].
--- NOTE | 2019-01-13 10:58 | RAD ---
Date of service: 01/12/2019 PROCEDURE: Radiographs of the Lumbar Spine. HISTORY: pain COMPARISON: 11/08/2016 TECHNIQUE: Four views obtained. FINDINGS: BONES: There is a chronic fracture deformity of L2. DISC SPACES: Unremarkable. OTHER FINDINGS: None. IMPRESSION: No acute findings
== END 2019-01-13 01:21 | disposition home or self-care (01) ==
LOC: ED 21:52
DX: M54.5 Low back pain (principal); F17.210 Nicotine dependence, cigarettes, uncomplicated; I10 Essential (primary) hypertension; J44.9 Chronic obstructive pulmonary disease, unspecified; Z86.73 Personal history of transient ischemic attack (TIA), and cerebral infarction without residual deficits

== ENCOUNTER 2019-01-24 02:55 | Emergency (ER) | payer MEDICAID ==
[2019-01-24 03:07] VITALS: BMI 29.2
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
[2019-01-24 03:10] VITALS: TEMP 97.6
[2019-01-24 11:08] VITALS: BP 157/91; PULSE 79; RESP 17; O2SAT 96
== END 2019-01-24 13:04 | disposition home or self-care (01) ==
LOC: ED 02:55
DX: M54.9 Dorsalgia, unspecified (principal); G89.29 Other chronic pain

== ENCOUNTER 2019-01-24 12:50 | Emergency (ER) | payer MEDICAID ==
[2019-01-24 12:50] VITALS: BMI 29.2
[2019-01-24 13:16] VITALS: TEMP 98
[2019-01-24] MEDS ORDERED: Lidocaine 5% Patch TD STA (13:20)
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
--- NOTE | 2019-01-24 14:59 | RAD ---
Date of service: 01/24/2019 PROCEDURE: Radiographs of the Lumbar Spine. HISTORY: low back pain COMPARISON: No prior. TECHNIQUE: 5 views obtained. FINDINGS: BONES: There is mild degenerative retrolisthesis of L3 on L4. There is normal lumbar lordosis. There is a chronic superior endplate compression fracture deformity in the L2 vertebral body. There is diffuse bone demineralization. No acute fracture. DISC SPACES: There is multilevel degenerative disc disease with anterior osteophytes, reduced disc heights and multilevel facet arthropathy, worse at L5-S1. OTHER FINDINGS: There are no pathologic soft tissue calcifications. Both sacroiliac joints are normal. IMPRESSION: No acute fracture or spondylolysis. Chronic superior endplate compression fracture deformity in the L2 vertebral body. Mild multilevel degenerative disc disease, worse at L5-S1.
[2019-01-24 15:26] VITALS: BP 112/73; PULSE 81; RESP 17; O2SAT 100
== END 2019-01-24 16:45 | disposition home or self-care (01) ==
LOC: ED 12:50
DX: M54.17 Radiculopathy, lumbosacral region (principal); G89.29 Other chronic pain
CPT/HCPCS: 72110; 96372; 99282; J1100

== ENCOUNTER 2019-02-01 22:51 | Emergency (ER) | payer MEDICAID ==
[2019-02-01 22:52] VITALS: BMI 29.2
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
[2019-02-02 00:41] LABS: BASO # 0.02 K/mm3 (0.0-2.0); BASO % 0.3 % (0.0-3.0); EOS # 0.3 (0.0-0.7); EOS % 3.8 % (1.5-5.0); HEMOGLOBIN 13.1 g/dL (14.0-18.0); LYMPH # 2.3 (1.2-3.4); LYMPH % 30.6 % (22.0-35.0); MEAN CELL VOLUME 98.8 fl (80.0-105.0); MEAN CORPUSCULAR HEMOGLOBIN 32.5 pg (25.0-35.0); MEAN CORPUSCULAR HGB CONC 32.9 g/dl (31.0-37.0); MEAN PLATELET VOLUME 9.1 fl (7.0-11.0); MONO # 1.1 (0.1-0.6); MONO % 15.2 % (1.0-6.0); RBC 4.03 10^6/uL (3.5-6.1); RED CELL DISTRIBUTION WIDTH 12.8 % (11.5-14.5); WHITE BLOOD COUNT 7.4 10^3/uL (4.5-11.0)
[2019-02-02 00:52] LABS: ALB/GLOB RATIO 1.1 (1.1-1.8); ALBUMIN 3.7 g/dL (3.0-4.8); ALT/SGPT 84 U/L (7-56); AST/SGOT 95 U/L (17-59); BLOOD UREA NITROGEN 12 mg/dL (7-21); CALCIUM 8.8 mg/dL (8.4-10.5); GFR NON-AFRICAN AMERICAN > 60
[2019-02-02] MEDS ORDERED: Tmp-Smz 800 mg-160 mg DS Tab PO ONE (04:23)
[2019-02-02 05:48] VITALS: BP 158/94; PULSE 63; RESP 16; TEMP 98.2; O2SAT 92
== END 2019-02-02 07:14 | disposition home or self-care (01) ==
LOC: ED 22:51
DX: L03.116 Cellulitis of left lower limb (principal); F17.210 Nicotine dependence, cigarettes, uncomplicated; I10 Essential (primary) hypertension; J44.9 Chronic obstructive pulmonary disease, unspecified; Z86.73 Personal history of transient ischemic attack (TIA), and cerebral infarction without residual deficits